=== PATIENT | male | born 1945 | race Caucasian/White ===

== ENCOUNTER → 2021-03-04 10:11 | Outpatient (BNVA) | payer MEDICARE, SELFPAY | PROVIDERS: Visit Provider Family Medicine | DX: I10 Essential (primary) hypertension (principal); R35.1 Nocturia; E78.1 Pure hyperglyceridemia | CPT/HCPCS: 80053; 80061; 82043; 84153; 85025 ==

== ENCOUNTER → 2021-09-02 10:35 | Outpatient (BNVA) | payer MEDICARE, SELFPAY | PROVIDERS: PCP Family Medicine; Visit Provider Family Medicine | DX: I10 Essential (primary) hypertension (principal); E78.1 Pure hyperglyceridemia; R35.1 Nocturia; G47.33 Obstructive sleep apnea (adult) (pediatric) | CPT/HCPCS: 80053 ==

== ENCOUNTER → 2022-03-05 10:12 | Outpatient (BNVA) | payer MEDICARE, SELFPAY | PROVIDERS: PCP Family Medicine; Visit Provider Family Medicine | DX: I10 Essential (primary) hypertension (principal); R35.1 Nocturia; G60.9 Hereditary and idiopathic neuropathy, unspecified | CPT/HCPCS: 80053; 80061; 82607; 84153; 84443; 85025 ==

== ENCOUNTER → 2022-08-27 10:16 | Outpatient (BNVA) | payer MEDICARE, SELFPAY | PROVIDERS: PCP Family Medicine; Visit Provider Family Medicine | DX: I10 Essential (primary) hypertension (principal); R53.83 Other fatigue; G47.33 Obstructive sleep apnea (adult) (pediatric) | CPT/HCPCS: 80053; 82043; 84403; 84443; 85025 ==

== ENCOUNTER 2023-03-19 08:52 | Outpatient (CLI) | payer MEDICARE, SELFPAY ==
--- NOTE | 2023-03-19 08:55 | XR_ITS ---
WS: [id number] XR shoulder RT min 2V* [id number] REASON FOR EXAM: chronic right shoulder pain FINDINGS: No fracture or focal bone lesion. Moderate narrowing of the acromioclavicular joint with moderate subchondral sclerosis and osteophytos is. Glenohumeral joint space not optimally demonstrated. Moderate narrowing of the joint space with moder ate subchondral sclerosis. Significant sclerosis and cystic change in the greater biceps tuberosity. No soft tissue abnormality. 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 Significant rotator cuff tendon arthropathy.
== END 2023-03-19 08:53 | disposition home or self-care (01) ==
LOC: RAD 08:54
PROVIDERS: PCP Family Medicine; Visit Provider Family Medicine
DX: M19.011 Primary osteoarthritis, right shoulder (principal); G89.29 Other chronic pain; R35.1 Nocturia; E78.5 Hyperlipidemia, unspecified
CPT/HCPCS: 73030; 80053; 80061; 84153

== ENCOUNTER 2024-02-10 10:33 | Outpatient (CLI) | payer MEDICARE, SELFPAY ==
--- NOTE | 2024-02-10 10:35 | XR_ITS ---
WS: [id number] Chest 2 views, 02/10/2024 Clinical Data: cough on and off Comparison: Two-view chest, 11/10/2016. Findings: No nodules, masses or effusions are seen. The heart is normal. The pulmonary vascularity is not increased. No pneumonia or pneumothorax is seen. The aortic arch is tortuous. There is an old po sterior lateral right ninth rib fracture. XR/XR chest 2V* [id number] Impression: Atherosclerosis.
== END 2024-02-10 10:34 | disposition home or self-care (01) ==
LOC: RAD 10:35
PROVIDERS: PCP Family Medicine; Visit Provider Family Medicine
DX: R05.3 Chronic cough (principal); Q25.46 Tortuous aortic arch
CPT/HCPCS: 71046

== ENCOUNTER → 2024-03-17 08:50 | Outpatient (BNVA) | payer MEDICARE, SELFPAY | PROVIDERS: PCP Family Medicine; Visit Provider Family Medicine | DX: I10 Essential (primary) hypertension (principal); E78.5 Hyperlipidemia, unspecified; R73.01 Impaired fasting glucose; E66.9 Obesity, unspecified; Z12.5 Encounter for screening for malignant neoplasm of prostate; G25.81 Restless legs syndrome; F51.04 Psychophysiologic insomnia | CPT/HCPCS: 80053; 80061; 83036; 84439; 84443; 85025; G0103 ==

== ENCOUNTER 2024-06-29 14:10 | Emergency (ER) | payer MEDICARE, SELFPAY ==
[2024-06-29] VITALS (8 sets, daily range): BP systolic 135–191; BP diastolic 67–89; PULSE 51–63; RESP 17–19; TEMP 36.8; O2SAT 95–100; BMI 30.7
--- NOTE | 2024-06-29 14:24 | ECG_ITS ---
[facility]24[facility]29 Pat Name: Roberto Carlos Maya Department: Room: Gender: Male Projection Printer: : 1945 Requested By: Kristin Gupta Order Number: [id number] Reading MD: JUDY JONES Measurements Intervals [place] Rate: 56 P: 46 IN: 171 QRS: 37 QRSD: 113 T: 31 QT: 413 QTc: 401 Interpretive Statements SINUS BRADYCARDIA PROBABLE INFERIOR MYOCARDIAL INFARCTION , PROBABLY OLD [35 ms Q WAVE IN II/aVF] No previous ECG available for comparison Electronically Signed On 07-01-2024 16:29:29 CDT by JUDY JONES [email or web address]
[2024-06-29 14:55] LABS: Basophils % 0.4 %; Eosinophils # 0.1 10^3/uL (0.0-0.8); Hematocrit 41.1 % (37-53); Lymphocytes % 20.2 %; Mean Corpuscular HGB Conc 34.8 g/dL (30-55); Mean Corpuscular Hemoglobin 30.9 pg (27-33); Mean Corpuscular Volume 88.8 fl (82-101); Mean Platelet Volume 9.7 fL (7.4-10.4); Monocytes # 0.4 10^3/uL (0.2-0.9); Monocytes % 8.4 %; Neutrophils # 3.38 10^3/uL (1.8-7.7); Neutrophils % 68.8 %; Nucleated Red Blood Cells % 0 %; Platelet Count 197 10^3/cmm (157-399); Red Blood Count 4.63 10^6/uL (3.85-5.65); Red Cell Distribution Width 12.9 % (12.1-15.1); White Blood Count 4.91 10^3/uL (3.29-11.43)
[2024-06-29 15:16] LABS: Alanine Aminotransferase 15 U/L (0-41); Albumin Level 4.3 g/dL (3.5-5.2); Alkaline Phosphatase 42 U/L (40-130); Aspartate Amino Transferase 18 U/L (0-40); Blood Urea Nitrogen 22 mg/dL (8-23); Calcium 9.8 mg/dL (8.5-10.5); Carbon Dioxide 24 mmol/L (22-29); Chloride 101 mmol/L (98-107); Creatinine Clr Calc Pharmacy 70.9059; Globulin 2.8 g/dL (1.3-4.6); Glucose 101 mg/dL (65-115); Osmolality Calculated 291 mOsm/kg (285-295); Sodium 139 mmol/L (136-145); Total Bilirubin 0.8 mg/dL (0.15-1.2); Total Protein 7.1 g/dL (6.6-8.7)
--- NOTE | 2024-06-29 15:58 | W.ED.GENADLT ---
Documented by User: Geoffrey Aalniz DO 07/03/24 06:24 HPI - General Adult General: Chief complaint: General Medical Stated complaint: high bp Time Seen by Provider: 06/29/24 15:36 History of Present Illness: 78-year-old male presents emergency room with elevated blood pressure. Began his symptoms this morning that he noticed he had elevated blood pressure to head headache some neck and left arm discomfort. He currently takes hydrochlorothiazide and losartan and metoprolol for his elevated blood pressure. He takes his medications usually for blood pressure at night took them last night. He still has a headache neck and arm discomfort. He denies any specific chest pain or shortness of breath no abdominal pain. No changes in medications he is not taking any lhdi-lhn-zvjfjbq medications recently. Associated symptoms: Reports headache(s); Deny chest pain, dyspnea, rash or palpitations Related Data Home Medications ?Medication ?Instructions ?Recorded ?Confirmed chondroitin sulfate A sodium 400 1,200 mg PO DAILY 06/29/24 06/30/24 mg capsule coenzyme Q10 100 mg capsule 200 mg PO DAILY 06/29/24 06/30/24 (CoQ-10) cyanocobalamin (vitamin B-12) 1,000 mcg PO DAILY 06/29/24 06/30/24 1,000 mcg tablet (Vitamin B-12) glucosamine HCl 1,500 mg tablet 1,500 mg PO DAILY 06/29/24 06/30/24 multivitamin with minerals-folic 1 tab PO DAILY 06/29/24 06/30/24 acid 400 mcg-lycopene 370 mcg tablet (One-A-Day Men's 50 Plus) quercetin 500 mg capsule 1,000 mg PO DAILY 06/29/24 06/30/24 vitamin D3 125 mcg (5,000 1 cap PO DAILY 06/29/24 06/30/24 unit)-vitamin K2 100 mcg capsule zinc acetate 50 mg (zinc) capsule 50 mg PO DAILY 06/29/24 06/30/24 Previous Rx's ?Medication ?Instructions ?Recorded trazodone 50 mg tablet 50 mg PO .qpm #90 tabs 02/13/24 fenofibrate nanocrystallized 145 See Rx Instructions .Route 05/09/24 mg tablet .COMPLEX #90 tabs hydrochlorothiazide 25 mg tablet 25 mg PO DAILY #90 tabs 05/09/24 losartan 100 mg tablet See Rx Instructions .Route 05/09/24 .COMPLEX #90 tabs metoprolol succinate 25 mg See Rx Instructions .Route 05/09/24 tablet,extended release 24 hr .COMPLEX #90 tabs indomethacin 50 mg capsule 50 mg PO TID PRN gout #30 caps 06/13/24 clonidine HCl 0.1 mg tablet 0.1 mg PO BID #60 tabs 06/30/24 Allergies Allergy/AdvReac Type Severity Reaction Status Date / Time amoxicillin Allergy Unknown ALGY-Rash Verified 03/17/24 08:03 Penicillins Allergy Unknown ALGY-Rash Verified 03/17/24 08:03 [id number]-[id number]-[id number] Reductase AdvReac Intermediate myalgias Verified 03/17/24 08:03 Inhibitor Review of Systems Const: Denies: fever(s) or chills Card: Denies: chest pain, palpitations, edema, swelling of feet/ankles, dyspnea on exertion or orthopnea Resp: Denies: dyspnea GI: Denies: abdominal pain : Denies: dysuria, urinary frequency or urinary urgency Musc: Denies: neck pain or back pain Skin/Breast: Denies: rash Neuro: Reports: headache(s) PFSH ED PFSH: Medical History Fasting hyperglycemia Restless leg syndrome Chronic insomnia Obesity (BMI 30.0-34.9) Dyslipidemia didn't tolerate statins in past; on fenofibrate Peyronie's disease hx of penile fx and surgical procedure on that KAITLIN (obstructive sleep apnea) cannot tolerate CPAP so not using Benign essential HTN Surgical History Hx of hand surgery trigger finger release; he thinks on R hand History of genitourinary surgical procedure surgery for penis fracture at [place] Family History Father Heart attack Mother Alzheimer disease CAD (coronary artery disease) Social History Smoking and tobacco/nicotine status: never used tobacco/nicotine Second hand smoke exposure: No Alcohol intake: current Alcohol intake frequency: 0-2 Drinks per Day Alcohol type: beer and wine Substance/Drug Use: never Household members: spouse Marital status: Number of children: 2 Highest education level completed: Bachelor's Degree Current occupational status: retired 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 [employer] Physical Exam Const: GENERAL APPEARANCE: cooperative ORIENTATION/CONSCIOUSNESS: Yes awake, Yes oriented to person, Yes oriented to place and Yes oriented to time HENMT: COMMON NORMALS: normocephalic, atraumatic and hearing grossly normal bilaterally HEAD & SCALP: normocephalic and atraumatic Resp: COMMON NORMALS: normal respiratory effort, No retractions, No use of accessory muscles and clear to auscultation bilaterally AUSCULTATION: clear to auscultation bilaterally Cardio: COMMON NORMALS: regular rate, regular rhythm and No murmurs present (Cardio) RATE: regular rate RHYTHM: regular rhythm GI: COMMON NORMALS: Soft to palpation and No hepatosplenomegaly present AUSCULTATION: Yes normoactive bowel sounds PALPATION: Yes Soft to palpation, No Tenderness to palpation present (GI), No Guarding due to palpation present (GI) and Yes No hepatosplenomegaly present Extremity: COMMON NORMALS: normal to inspection, capillary refill normal, no clubbing, cyanosis or edema, no calf tenderness and no pedal edema Neuro: SENSORIUM/ORIENTATION: Yes oriented to person, Yes oriented to place and Yes oriented to time Skin: COMMON NORMALS: no rashes or lesions noted GENERAL SKIN EXAM: no rashes or lesions noted Course Vital Signs: Vital signs: Vital Signs Temperature 98.2 F 06/29/24 14:19 Pulse Rate 52 L 06/29/24 20:22 Respiratory Rate 18 06/29/24 19:45 Blood Pressure 146/67 06/29/24 20:22 Pulse Oximetry 96 06/29/24 20:22 Oxygen Delivery Me thod Room Air 06/29/24 14:19 MDM - General Adult Medical Decision Making Care signed out to Dr. Ramos at change of shift. See final notes for diagnosis and disposition. Patient presents emerged from with complaint of some left shoulder and neck and arm pain. Never had any chest pain. His blood pressure was significantly elevated here but did come down nicely to 122/65 after given clonidine. His symptoms have completely resolved. His delta troponin was mildly bumped but this is likely just secondary to his elevated blood pressure, much less likely to be because of ACS. Patient has no chest pain at all at this time. He is asking be discharged home. Discussed the slight bump at the troponin with the patient and discussed with the patient that I would recommend him following up to get a stress test done. Also recommend the patient to keep a blood pressure diary and take this to his primary care physician. Lab Data 06/29/24 14:44 06/29/24 14:44 Radiology Impressions Chest X-Ray 06/29/24 16:53 IMPRESSION: No acute findings. Laboratory Results WBC 4.91 10^3/uL (3.29-11.43) 06/29/24 14:44 RBC 4.63 10^6/uL (3.85-5.65) 06/29/24 14:44 Hgb 14.30 g/dL (11.27-16.99) 06/29/24 14:44 Hct 41.1 % (37-53) 06/29/24 14:44 MCV 88.8 fl (82-101) 06/29/24 14:44 MCH 30.9 pg (27-33) 06/29/24 14:44 MCHC 34.8 g/dL (30-55) 06/29/24 14:44 RDW 12.9 % (12.1-15.1) 06/29/24 14:44 Plt Count 197 10^3/cmm (157-399) 06/29/24 14:44 MPV 9.7 fL (7.4-10.4) 06/29/24 14:44 Neut % (Auto) 68.8 % 06/29/24 14:44 Lymph % (Auto) 20.2 % 06/29/24 14:44 Clay % (Auto) 8.4 % 06/29/24 14:44 Eos % (Auto) 2.0 % 06/29/24 14:44 Baso % (Auto) 0.4 % 06/29/24 14:44 Neut # (Auto) 3.38 10^3/uL (1.8-7.7) 06/29/24 14:44 Lymph # (Auto) 1.0 10^3/uL (0.8-4.8) 06/29/24 14:44 Clay # (Auto) 0.4 10^3/uL (0.2-0.9) 06/29/24 14:44 Eos # (Auto) 0.1 10^3/uL (0.0-0.8) 06/29/24 14:44 Baso # (Auto) 0.0 10^3/uL (0.0-0.1) 06/29/24 14:44 Nucleated RBC % (auto) 0 % 06/29/24 14:44 Nucleated RBCs # 0.0 /100WBC 06/29/24 14:44 Sodium 139 mmol/L (136-145) 06/29/24 14:44 Potassium 4.0 mmol/L (3.5-5.1) 06/29/24 14:44 Chloride 101 mmol/L (98-107) 06/29/24 14:44 Carbon Dioxide 24 mmol/L (22-29) 06/29/24 14:44 Anion Gap 18.0 (5-19) 06/29/24 14:44 BUN 22 mg/dL (8-23) 06/29/24 14:44 Creatinine 1.1 mg/dL (0.7-1.2) 06/29/24 14:44 GFR Calculation Not Reportable 06/29/24 14:44 Glucose 101 mg/dL (65-115) 06/29/24 14:44 Calculated Osmolality 291 mOsm/kg (285-295) 06/29/24 14:44 Calcium 9.8 mg/dL (8.5-10.5) 06/29/24 14:44 Total Bilirubin 0.8 mg/dL (0.15-1.2) 06/29/24 14:44 AST 18 U/L (0-40) 06/29/24 14:44 ALT 15 U/L (0-41) 06/29/24 14:44 Alkaline Phosphatase 42 U/L (40-130) 06/29/24 14:44 Troponin T Baseline 58 ng/L (0-15) H 06/29/24 17:20 Troponin T 120 Minute 68.37 ng/L (0-15) H 06/29/24 19:00 Delta Troponin T 10.37 ABS# (0-10) H* 06/29/24 19:00 Total Protein 7.1 g/dL (6.6-8.7) 06/29/24 14:44 Albumin 4.3 g/dL (3.5-5.2) 06/29/24 14:44 Globulin 2.8 g/dL (1.3-4.6) 06/29/24 14:44 Urine Color Yellow (Yellow) 06/29/24 16:39 Urine Appearance Clear (CLEAR) 06/29/24 16:39 Urine pH 5.5 (5-7) 06/29/24 16:39 Ur Specific [place] 1.019 (1.005-1.030) 06/29/24 16:39 Urine Protein Negative (Negative) 06/29/24 16:39 Urine Glucose (UA) Negative (Normal) 06/29/24 16:39 Urine Ketones Negative (Negative) 06/29/24 16:39 Urine Blood Negative (Negative) 06/29/24 16:39 Urine Nitrate Negative (Negative) 06/29/24 16:39 Urine Bilirubin Negative (Negative) 06/29/24 16:39 Urine Urobilinogen 0.2 mg/dL (Negative) 06/29/24 16:39 Ur Leukocyte Esterase Negative (Negative) 06/29/24 16:39 Urine RBC 0-2 /hpf (0-2) 06/29/24 16:39 Urine WBC 0-5 /hpf (0-5) 06/29/24 16:39 Ur Squamous Epith Cells 0-5 /hpf (0-5) 06/29/24 16:39 Amorphous Sediment Not Reportable 06/29/24 16:39 Urine Bacteria None seen /hpf (NONE) 06/29/24 16:39 Hyaline Casts 0-4 /lpf H 06/29/24 16:39 Discharge Plan Discharge Patient Disposition: Home Clinical Impression: Benign essential HTN Condition: Stable Prescriptions: No Action trazodone 50 mg tablet 50 mg PO .qpm Qty: 90 3RF fenofibrate nanocrystallized 145 mg tablet See Rx Instructions .ROUTE .COMPLEX Qty: 90 1RF Dose Instruction: Take 1 tablet by mouth once daily Rx Instructions: Take 1 tablet by mouth once daily losartan 100 mg tablet See Rx Instructions .ROUTE .COMPLEX Qty: 90 1RF Dose Instruction: Take 1 tablet by mouth once daily Rx Instructions: Take 1 tablet by mouth once daily hydrochlorothiazide 25 mg tablet 25 mg PO DAILY Qty: 90 1RF metoprolol succinate 25 mg tablet extended release 24 hr See Rx Instructions .ROUTE .COMPLEX Qty: 90 1RF Dose Instruction: Take 1 tablet by mouth once daily Rx Instructions: Take 1 tablet by mouth once daily indomethacin 50 mg capsule 50 mg PO TID PRN (Reason: gout) Qty: 30 0RF Rx Instructions: administer with food or milk clonidine HCl 0.1 mg tablet 0.1 mg PO BID Qty: 60 0RF Rx Instructions: only take if top number BP is >160 or bottom number is >100, can take up to bid prn high readings zinc acetate 50 mg (zinc) Capsule 50 mg PO DAILY cyanocobalamin (vitamin B-12) [Vitamin B-12] 1,000 mcg Tablet 1,000 mcg PO DAILY Chondroitin Sulfate 400 mg Capsule 1,200 mg PO DAILY coenzyme Q10 [CoQ-10] 100 mg Capsule 200 mg PO DAILY glucosamine HCl 1,500 mg Tablet 1,500 mg PO DAILY Rx Instructions: administer with a meal quercetin 500 mg Capsule 1,000 mg PO DAILY One-A-Day Men's 50 Plus 400-370 mcg Tablet 1 tab PO DAILY vitamin D3-vitamin K2 125 mcg (5,000 unit)-100 mcg Capsule 1 cap PO DAILY Discharge Orders: Discharge ED (Routine); Ordered 06/29/24 Ordered By: Fransisco Ramos Referrals: Jazmin Mcintosh MD [Primary Care Provider, Family Practice] Discharge Diet: Low Salt Patient Instructions: Opioid Safety, Pain Management Activity Restrictions/Additional Instructions: Follow-up with PCP for referral for outpatient stress test. Keep a blood pressure diary. Print Language: [place] Islander Coding Level of Care Code ED Regional Safety Manager for Chg Fwd Documented by User: Fransisco Ramos MD 06/29/24 20:18 HPI - General Adult General: Chief complaint: General Medical Stated complaint: high bp Time Seen by Provider: 06/29/24 15:36 Related Data Home Medications ?Medication ?Instructions ?Recorded ?Confirmed chondroitin sulfate A sodium 400 1,200 mg PO DAILY 06/29/24 06/30/24 mg capsule coenzyme Q10 100 mg capsule 200 mg PO DAILY 06/29/24 06/30/24 (CoQ-10) cyanocobalamin (vitamin B-12) 1,000 mcg PO DAILY 06/29/24 06/30/24 1,000 mcg tablet (Vitamin B-12) glucosamine HCl 1,500 mg tablet 1,500 mg PO DAILY 06/29/24 06/30/24 multivitamin with minerals-folic 1 tab PO DAILY 06/29/24 06/30/24 acid 400 mcg-lycopene 370 mcg tablet (One-A-Day Men's 50 Plus) quercetin 500 mg capsule 1,000 mg PO DAILY 06/29/24 06/30/24 vitamin D3 125 mcg (5,000 1 cap PO DAILY 06/29/24 06/30/24 unit)-vitamin K2 100 mcg capsule zinc acetate 50 mg (zinc) capsule 50 mg PO DAILY 06/29/24 06/30/24 Previous Rx's ?Medication ?Instructions ?Recorded trazodone 50 mg tablet 50 mg PO .qpm #90 tabs 02/13/24 fenofibrate nanocrystallized 145 See Rx Instructions .Route 05/09/24 mg tablet .COMPLEX #90 tabs hydrochlorothiazide 25 mg tablet 25 mg PO DAILY #90 tabs 05/09/24 losartan 100 mg tablet See Rx Instructions .Route 05/09/24 .COMPLEX #90 tabs metoprolol succinate 25 mg See Rx Instructions .Route 05/09/24 tablet,extended release 24 hr .COMPLEX #90 tabs indomethacin 50 mg capsule 50 mg PO TID PRN gout #30 caps 06/13/24 clonidine HCl 0.1 mg tablet 0.1 mg PO BID #60 tabs 06/30/24 Allergies Allergy/AdvReac Type Severity Reaction Status Date / Time amoxicillin Allergy Unknown ALGY-Rash Verified 03/17/24 08:03 Penicillins Allergy Unknown ALGY-Rash Verified 03/17/24 08:03 [id number] Reductase AdvReac Intermediate myalgias Verified 03/17/24 08:03 Inhibitor PFSH ED PFSH: Medical History Fasting hyperglycemia Restless leg syndrome Chronic insomnia Obesity (BMI 30.0-34.9) Dyslipidemia didn't tolerate statins in past; on fenofibrate Peyronie's disease hx of penile fx and surgical procedure on that KAITLIN (obstructive sleep apnea) cannot tolerate CPAP so not using Benign essential HTN Surgical History Hx of hand surgery trigger finger release; he thinks on R hand History of genitourinary surgical procedure surgery for penis fracture at [place] Family History Father Heart attack Mother Alzheimer disease CAD (coronary artery disease) Social History Smoking and tobacco/nicotine status: never used tobacco/nicotine Second hand smoke exposure: No Alcohol intake: current Alcohol intake frequency: 0-2 Drinks per Day Alcohol type: beer and wine Substance/Drug Use: never Household members: spouse Marital status: Number of children: 2 Highest education level completed: Bachelor's Degree Current occupational status: retired 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 Never had any chest pain. His blood pressure was significantly elevated here but did come down nicely to 122/65 after given clonidine. His symptoms have completely resolved. His delta troponin was mildly bumped but this is likely just secondary to his elevated blood pressure, much less likely to be because of ACS. Patient has no chest pain at all at this time. He is asking be discharged home. Discussed the slight bump at the troponin with the patient and discussed with the patient that I would recommend him following up to get a stress test done. Also recommend the patient to keep a blood pressure diary and take this to his primary care physician. Lab Data 06/29/24 14:44 06/29/24 14:44 Radiology Impressions Chest X-Ray 06/29/24 16:53 IMPRESSION: No acute findings. Laboratory Results WBC 4.91 10^3/uL (3.29-11.43) 06/29/24 14:44 RBC 4.63 10^6/uL (3.85-5.65) 06/29/24 14:44 Hgb 14.30 g/dL (11.27-16.99) 06/29/24 14:44 Hct 41.1 % (37-53) 06/29/24 14:44 MCV 88.8 fl (82-101) 06/29/24 14:44 MCH 30.9 pg (27-33) 06/29/24 14:44 MCHC 34.8 g/dL (30-55) 06/29/24 14:44 RDW 12.9 % (12.1-15.1) 06/29/24 14:44 Plt Count 197 10^3/cmm (157-399) 06/29/24 14:44 MPV 9.7 fL (7.4-10.4) 06/29/24 14:44 Neut % (Auto) 68.8 % 06/29/24 14:44 Lymph % (Auto) 20.2 % 06/29/24 14:44 Clay % (Auto) 8.4 % 06/29/24 14:44 Eos % (Auto) 2.0 % 06/29/24 14:44 Baso % (Auto) 0.4 % 06/29/24 14:44 Neut # (Auto) 3.38 10^3/uL (1.8-7.7) 06/29/24 14:44 Lymph # (Auto) 1.0 10^3/uL (0.8-4.8) 06/29/24 14:44 Clay # (Auto) 0.4 10^3/uL (0.2-0.9) 06/29/24 14:44 Eos # (Auto) 0.1 10^3/uL (0.0-0.8) 06/29/24 14:44 Baso # (Auto) 0.0 10^3/uL (0.0-0.1) 06/29/24 14:44 Nucleated RBC % (auto) 0 % 06/29/24 14:44 Nucleated RBCs # 0.0 /100WBC 06/29/24 14:44 Sodium 139 mmol/L (136-145) 06/29/24 14:44 Potassium 4.0 mmol/L (3.5-5.1) 06/29/24 14:44 Chloride 101 mmol/L (98-107) 06/29/24 14:44 Carbon Dioxide 24 mmol/L (22-29) 06/29/24 14:44 Anion Gap 18.0 (5-19) 06/29/24 14:44 BUN 22 mg/dL (8-23) 06/29/24 14:44 Creatinine 1.1 mg/dL (0.7-1.2) 06/29/24 14:44 GFR Calculation Not Reportable 06/29/24 14:44 Glucose 101 mg/dL (65-115) 06/29/24 14:44 Calculated Osmolality 291 mOsm/kg (285-295) 06/29/24 14:44 Calcium 9.8 mg/dL (8.5-10.5) 06/29/24 14:44 Total Bilirubin 0.8 mg/dL (0.15-1.2) 06/29/24 14:44 AST 18 U/L (0-40) 06/29/24 14:44 ALT 15 U/L (0-41) 06/29/24 14:44 Alkaline Phosphatase 42 U/L (40-130) 06/29/24 14:44 Troponin T Baseline 58 ng/L (0-15) H 06/29/24 17:20 Troponin T 120 Minute 68.37 ng/L (0-15) H 06/29/24 19:00 Delta Troponin T 10.37 ABS# (0-10) H* 06/29/24 19:00 Total Protein 7.1 g/dL (6.6-8.7) 06/29/24 14:44 Albumin 4.3 g/dL (3.5-5.2) 06/29/24 14:44 Globulin 2.8 g/dL (1.3-4.6) 06/29/24 14:44 Urine Color Yellow (Yellow) 06/29/24 16:39 Urine Appearance Clear (CLEAR) 06/29/24 16:39 Urine pH 5.5 (5-7) 06/29/24 16:39 Ur Specific [place] 1.019 (1.005-1.030) 06/29/24 16:39 Urine Protein Negative (Negative) 06/29/24 16:39 Urine Glucose (UA) Negative (Normal) 06/29/24 16:39 Urine Ketones Negative (Negative) 06/29/24 16:39 Urine Blood Negative (Negative) 06/29/24 16:39 Urine Nitrate Negative (Negative) 06/29/24 16:39 Urine Bilirubin Negative (Negative) 06/29/24 16:39 Urine Urobilinogen 0.2 mg/dL (Negative) 06/29/24 16:39 Ur Leukocyte Esterase Negative (Negative) 06/29/24 16:39 Urine RBC 0-2 /hpf (0-2) 06/29/24 16:39 Urine WBC 0-5 /hpf (0-5) 06/29/24 16:39 Ur Squamous Epith Cells 0-5 /hpf (0-5) 06/29/24 16:39 Amorphous Sediment Not Reportable 06/29/24 16:39 Urine Bacteria None seen /hpf (NONE) 06/29/24 16:39 Hyaline Casts 0-4 /lpf H 06/29/24 16:39 All radiology interpretation(s) finalized by discharge Discharge Plan Discharge Patient Disposition: Home Clinical Impression: Benign essential HTN Condition: Stable Prescriptions: No Action trazodone 50 mg tablet 50 mg PO .qpm Qty: 90 3RF fenofibrate nanocrystallized 145 mg tablet See Rx Instructions .ROUTE .COMPLEX Qty: 90 1RF Dose Instruction: Take 1 tablet by mouth once daily Rx Instructions: Take 1 tablet by mouth once daily losartan 100 mg tablet See Rx Instructions .ROUTE .COMPLEX Qty: 90 1RF Dose Instruction: Take 1 tablet by mouth once daily Rx Instructions: Take 1 tablet by mouth once daily hydrochlorothiazide 25 mg tablet 25 mg PO DAILY Qty: 90 1RF metoprolol succinate 25 mg tablet extended release 24 hr See Rx Instructions .ROUTE .COMPLEX Qty: 90 1RF Dose Instruction: Take 1 tablet by mouth once daily Rx Instructions: Take 1 tablet by mouth once daily indomethacin 50 mg capsule 50 mg PO TID PRN (Reason: gout) Qty: 30 0RF Rx Instructions: administer with food or milk clonidine HCl 0.1 mg tablet 0.1 mg PO BID Qty: 60 0RF Rx Instructions: only take if top number BP is >160 or bottom number is >100, can take up to bid prn high readings zinc acetate 50 mg (zinc) Capsule 50 mg PO DAILY cyanocobalamin (vitamin B-12) [Vitamin B-12] 1,000 mcg Tablet 1,000 mcg PO DAILY Chondroitin Sulfate 400 mg Capsule 1,200 mg PO DAILY coenzyme Q10 [CoQ-10] 100 mg Capsule 200 mg PO DAILY glucosamine HCl 1,500 mg Tablet 1,500 mg PO DAILY Rx Instructions: administer with a meal quercetin 500 mg Capsule 1,000 mg PO DAILY One-A-Day Men's 50 Plus 400-370 mcg Tablet 1 tab PO DAILY vitamin D3-vitamin K2 125 mcg (5,000 unit)-100 mcg Capsule 1 cap PO DAILY Discharge Orders: Discharge ED (Routine); Ordered 06/29/24 Ordered By: Fransisco Ramos Referrals: Jazmin Mcintosh MD [Primary Care Provider, [facility]] Discharge Diet: Low Salt Patient Instructions: Opioid Safety, Pain Management Activity Restrictions/Additional Instructions: Follow-up with PCP for referral for outpatient stress test. Keep a blood pressure diary. Print Language: [place] Islander Coding Level of Care Code ED Regional Safety Manager for Roberto Loving
--- NOTE | 2024-06-29 16:35 | PC.NURSE ---
pt provided with urinal, informed for need of UA sample, pt states went in [facility] restroom, cannot [facility]
--- NOTE | 2024-06-29 16:53 | XRR_ITS ---
PROCEDURE INFORMATION: Exam: XR Chest Exam date and time: 06/29/2024 5:13 PM Age: 78 years old Clinical indication: Other: High BP; Additional info: Chest pain TECHNIQUE: Imaging protocol: Radiologic exam of the chest. Views: 1 view. COMPARISON: CR XR chest 2V* [id number] 02/10/2024 10:39 AM FINDINGS: Lungs: Unremarkable. No consolidation. Pleural spaces: Unremarkable. No pleural effusion. No pneumothorax. Heart/Mediastinum: Unremarkable. No cardiomegaly. Bones/joints: Unremarkable. XR/XR chest 1V portable [id number] IMPRESSION: No acute findings.
[2024-06-29 17:00] LABS: Bilirubin Urine Negative (Negative); Blood Urine Negative (Negative); Glucose Urine UA Negative (Normal); Ketones Urine Negative (Negative); Leukocyte Esterase Urine Negative (Negative); Nitrate Urine Negative (Negative); Protein Urine Negative (Negative); Specific Gravity, Urine 1.019 (1.005-1.030); Urine Appearance Clear (CLEAR); Urine Color Yellow (Yellow); Urobilinogen Urine 0.2 mg/dL (Negative); pH Urine 5.5 (5-7)
[2024-06-29 17:02] LABS: Add Urine Microscopic? YES; Bacteria Urine None Seen /hpf; Hyaline Casts Urine 0-4 /lpf; RBC Urine 0-2 /hpf (0-2); Squamous Epithelial Cell Urine 0-5 /hpf (0-5); WBC Urine 0-5 /hpf (0-5)
[2024-06-29 17:38] LABS: Add Urine Culture? No
[2024-06-29 17:45] LABS: Troponin(5th) Baseline 58 ng/L (0-15)
[2024-06-29] MEDS: cloNIDine 0.1 mg Tablet PO (18:04)
--- NOTE | 2024-06-29 18:53 | ECG_ITS ---
[facility] Test Date: 2024-06-29 Pat Name: Roberto Carlos Maya Department: Room: Gender: Male Soil Engineer: : 1945 Requested By: Geoffrey Miller Order Number: [id number] Reading MD: JUDY JONES Measurements Intervals [place] Rate: 51 P: 48 AK: 178 QRS: 41 QRSD: 112 T: 36 QT: 437 QTc: 406 Interpretive Statements SINUS BRADYCARDIA MODERATE INTRAVENTRICULAR CONDUCTION DELAY [110+ ms QRS DURATION] Compared to ECG 06/29/2024 14:24:57 Intraventricular conduction delay now present Myocardial infarct finding no longer present Electronically Signed On 07-01-2024 16:27:43 CDT by JUDY JONES [email or web address]
[2024-06-29 19:25] LABS: Troponin 5 2HR 68.37 ng/L (0-15)
[2024-06-29 19:29] LABS: Troponin 5 2HR Delta 10.37 ABS# (0-10)
== END 2024-06-29 20:23 | disposition home or self-care (01) ==
PROVIDERS: Family Medicine; Physician Assistant; Emergency Provider Emergency Medicine; PCP Family Medicine
DX: I10 Essential (primary) hypertension (principal); E78.5 Hyperlipidemia, unspecified
CPT/HCPCS: 36415; 71045; 80053; 81001; 84484; 85025; 93005; 99285; J9999

== ENCOUNTER 2024-06-30 10:56 | Inpatient (IN) | payer MEDICARE, SELFPAY ==
[2024-06-30] VITALS (11 sets, daily range): BP systolic 101–179; BP diastolic 55–84; PULSE 45–58; RESP 15–19; TEMP 36.4–36.8; O2SAT 95–98; BMI 30.7
--- NOTE | 2024-06-30 11:34 | PC.PHAR ---
patient just here yesterday, med list still accurate
--- NOTE | 2024-06-30 11:41 | W.ED.GENADLT ---
HPI - General Adult General: Chief complaint: General Medical Stated complaint: BP high, ache on left side and throat Time Seen by Provider: 06/30/24 11:24 History of Present Illness: 78-year-old man with a history of hypertension, hyperlipidemia and restless leg syndrome who presents emergency room with elevated blood pressure. This been going on for a few days now. He was seen in the emergency room yesterday and ruled out for acute coronary syndrome. He has been having some pressure/pain in his throat and down his left arm but no chest pain. He was given some clonidine while in the emergency room and blood pressure improved as did symptoms. However he developed symptoms again this morning and his blood pressure was back up. Related Data Home Medications ?Medication ?Instructions ?Recorded ?Confirmed chondroitin sulfate A sodium 400 1,200 mg PO DAILY 06/29/24 06/30/24 mg capsule coenzyme Q10 100 mg capsule 200 mg PO DAILY 06/29/24 06/30/24 (CoQ-10) cyanocobalamin (vitamin B-12) 1,000 mcg PO DAILY 06/29/24 06/30/24 1,000 mcg tablet (Vitamin B-12) glucosamine HCl 1,500 mg tablet 1,500 mg PO DAILY 06/29/24 06/30/24 multivitamin with minerals-folic 1 tab PO DAILY 06/29/24 06/30/24 acid 400 mcg-lycopene 370 mcg tablet (One-A-Day Men's 50 Plus) quercetin 500 mg capsule 1,000 mg PO DAILY 06/29/24 06/30/24 vitamin D3 125 mcg (5,000 1 cap PO DAILY 06/29/24 06/30/24 unit)-vitamin K2 100 mcg capsule zinc acetate 50 mg (zinc) capsule 50 mg PO DAILY 06/29/24 06/30/24 Previous Rx's ?Medication ?Instructions ?Recorded trazodone 50 mg tablet 50 mg PO .qpm #90 tabs 02/13/24 fenofibrate nanocrystallized 145 See Rx Instructions .Route 05/09/24 mg tablet .COMPLEX #90 tabs hydrochlorothiazide 25 mg tablet 25 mg PO DAILY #90 tabs 05/09/24 losartan 100 mg tablet See Rx Instructions .Route 05/09/24 .COMPLEX #90 tabs metoprolol succinate 25 mg See Rx Instructions .Route 05/09/24 tablet,extended release 24 hr .COMPLEX #90 tabs indomethacin 50 mg capsule 50 mg PO TID PRN gout #30 caps 06/13/24 clonidine HCl 0.1 mg tablet 0.1 mg PO BID #60 tabs 06/30/24 Allergies Allergy/AdvReac Type Severity Reaction Status Date / Time amoxicillin Allergy Unknown ALGY-Rash Verified 03/17/24 08:03 Penicillins Allergy Unknown ALGY-Rash Verified 03/17/24 08:03 [id number] Reductase AdvReac Intermediate myalgias Verified 03/17/24 08:03 Inhibitor Review of Systems Narrative: Constitutional symptoms: Negative except as documented in HPI. Skin symptoms: Negative except as documented in HPI. Eye symptoms: Negative except as documented in HPI. ENMT symptoms: Negative except as documented in HPI. Respiratory symptoms: Negative except as documented in HPI. Cardiovascular symptoms: Negative except as documented in HPI. Gastrointestinal symptoms: Negative except as documented in HPI. Genitourinary symptoms: Negative except as documented in HPI. Musculoskeletal symptoms: Negative except as documented in HPI. Neurologic symptoms: Negative except as documented in HPI. Psychiatric symptoms: Negative except as documented in HPI. Endocrine symptoms: Negative except as documented in HPI. PFSH ED PFSH: Medical History Fasting hyperglycemia Restless leg syndrome Chronic insomnia Obesity (BMI 30.0-34.9) Dyslipidemia didn't tolerate statins in past; on fenofibrate Peyronie's disease hx of penile fx and surgical procedure on that KAITLIN (obstructive sleep apnea) cannot tolerate CPAP so not using Benign essential HTN Surgical History Hx of hand surgery trigger finger release; he thinks on R hand History of genitourinary surgical procedure surgery for penis fracture at [facility] Family History Father Heart attack Mother Alzheimer disease CAD (coronary artery disease) Social History Smoking and tobacco/nicotine status: never used tobacco/nicotine Second hand smoke exposure: No Alcohol intake: current Alcohol intake frequency: 0-2 Drinks per Day Alcohol type: beer and wine Substance/Drug Use: never Household members: spouse Marital status: Number of children: 2 Highest education level completed: Bachelor's Degree Current occupational status: retired 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 Skin: Warm, dry. Head: Normocephalic, atraumatic. Neck: Supple, trachea midline. Eye: Extraocular movements are intact. Ears, nose, mouth and throat: mucosa moist. Cardiovascular: Regular, Normal peripheral perfusion. Respiratory: Lungs are clear to auscultation, respirations are non-labored, breath sounds are equal, Symmetrical chest wall expansion. Gastrointestinal: Soft, Nontender, Non distended Musculoskeletal: Normal ROM, no deformity. Neurological: Alert and oriented, No focal neurological deficit observed. Psychiatric: Cooperative, appropriate mood & affect. Course Vital Signs: Vital signs: Vital Signs Temperature 98.2 F 06/30/24 11:15 Pulse Rate 58 L 06/30/24 11:15 Respiratory Rate 16 06/30/24 11:15 Blood Pressure 178/81 06/30/24 11:15 Pulse Oximetry 97 06/30/24 11:15 Oxygen Delivery Me thod Room Air 06/30/24 11:15 MDM - General Adult Medical Decision Making Medical decision making: Differential diagnosis including but not limited to and based on the above HPI, review of systems and physical exam: Patient presents with hypertension: Essential hypertension. Stroke. acute coronary syndrome. kidney failure. congestive heart failure. anxiety. Orders placed to evaluate differential diagnosis based on the above differential, HPI and physical exam EKG: Time 1041. Rate 73. Normal sinus rhythm, No ST-T changes, no ectopy, normal ID & QRS intervals, This was reviewed and interpreted by myself the ER physician at 1046 Lab Review: Laboratory results were reviewed and interpreted by myself the emergency room physician. No leukocytosis. No anemia. No renal failure. Initial troponin is 140. Troponins yesterday were 58 and 68. There was not a significant delta at that time but given that he is continued have symptoms and is troponin is tripled the day treating as a non-STEMI and admitting. I reviewed the patient's medical record. Reexamination: Patient's blood pressure has improved without treatment. No increased work of breathing. Chest pain is improved some. I discussed findings and admission with the patient. Consultation: I spoke with Dr. Campbell who is on-call for cardiology. He recommends stat echo, therapeutic Lovenox, 300 mg Plavix which I have ordered. Consultation: I spoke with Dr. Alejo who is on-call for the hospitalist service who agrees to admission. Assessment and plan: Non-ST elevation myocardial infarction Chest pain Accelerated hypertension ?Blood pressures improved spontaneously ? Stat echo, Plavix and Lovenox in the emergency room. -I discussed the patient with the hospitalist on-call who is admitting the patient. - Discussed findings and plan with patient. Answered any questions. - All laboratory values were reviewed and interpreted personally by myself, the ER physician - All imaging was reviewed and interpreted personally by myself, the ER physician. - Evaluation and treatment of this problem were appropriate in the emergency setting Lab Data 06/30/24 11:47 06/30/24 11:47 Laboratory Results WBC 4.87 10^3/uL (3.29-11.43) 06/30/24 11:47 RBC 4.64 10^6/uL (3.85-5.65) 06/30/24 11:47 Hgb 14.40 g/dL (11.27-16.99) 06/30/24 11:47 Hct 41.1 % (37-53) 06/30/24 11:47 MCV 88.6 fl (82-101) 06/30/24 11:47 MCH 31.0 pg (27-33) 06/30/24 11:47 MCHC 35.0 g/dL (30-55) 06/30/24 11:47 RDW 12.9 % (12.1-15.1) 06/30/24 11:47 Plt Count 209 10^3/cmm (157-399) 06/30/24 11:47 MPV 9.9 fL (7.4-10.4) 06/30/24 11:47 Neut % (Auto) 68.9 % 06/30/24 11:47 Lymph % (Auto) 17.5 % 06/30/24 11:47 [place] % (Auto) 10.7 % 06/30/24 11:47 Eos % (Auto) 2.3 % 06/30/24 11:47 Baso % (Auto) 0.4 % 06/30/24 11:47 Neut # (Auto) 3.36 10^3/uL (1.8-7.7) 06/30/24 11:47 Lymph # (Auto) 0.9 10^3/uL (0.8-4.8) 06/30/24 11:47 [place] # (Auto) 0.5 10^3/uL (0.2-0.9) 06/30/24 11:47 Eos # (Auto) 0.1 10^3/uL (0.0-0.8) 06/30/24 11:47 Baso # (Auto) 0.0 10^3/uL (0.0-0.1) 06/30/24 11:47 Nucleated RBC % (auto) 0 % 06/30/24 11:47 Nucleated RBCs # 0.0 /100WBC 06/30/24 11:47 Sodium 137 mmol/L (136-145) 06/30/24 11:47 Potassium 4.1 mmol/L (3.5-5.1) 06/30/24 11:47 Chloride 102 mmol/L (98-107) 06/30/24 11:47 Carbon Dioxide 26 mmol/L (22-29) 06/30/24 11:47 Anion Gap 13.1 (5-19) 06/30/24 11:47 BUN 19 mg/dL (8-23) 06/30/24 11:47 Creatinine 0.9 mg/dL (0.7-1.2) 06/30/24 11:47 GFR Calculation Not Reportable 06/30/24 11:47 Glucose 111 mg/dL (65-115) 06/30/24 11:47 Calculated Osmolality 287 mOsm/kg (285-295) 06/30/24 11:47 Calcium 10.2 mg/dL (8.5-10.5) 06/30/24 11:47 Total Bilirubin 0.7 mg/dL (0.15-1.2) 06/30/24 11:47 AST 21 U/L (0-40) 06/30/24 11:47 ALT 16 U/L (0-41) 06/30/24 11:47 Alkaline Phosphatase 43 U/L (40-130) 06/30/24 11:47 Troponin T Baseline 139 ng/L (0-15) H* 06/30/24 11:47 Total Protein 7.3 g/dL (6.6-8.7) 06/30/24 11:47 Albumin 4.4 g/dL (3.5-5.2) 06/30/24 11:47 Globulin 2.9 g/dL (1.3-4.6) 06/30/24 11:47 No radiology studies performed this visit Discharge Plan Discharge Patient Disposition: Admitted As Inpatient Clinical Impression: Non-ST elevated myocardial infarction (non-STEMI), Chest pain, Accelerated hypertension Condition: Stable Coding Level of Care Code ED [employer] Manager for Roberto Loving
[2024-06-30 12:08] LABS: Basophils % 0.4 %; Eosinophils # 0.1 10^3/uL (0.0-0.8); Eosinophils % 2.3 %; Hematocrit 41.1 % (37-53); Lymphocytes # 0.9 10^3/uL (0.8-4.8); Lymphocytes % 17.5 %; Mean Corpuscular Volume 88.6 fl (82-101); Mean Platelet Volume 9.9 fL (7.4-10.4); Monocytes # 0.5 10^3/uL (0.2-0.9); Monocytes % 10.7 %; Neutrophils # 3.36 10^3/uL (1.8-7.7); Neutrophils % 68.9 %; Nucleated Red Blood Cells % 0 %; Platelet Count 209 10^3/cmm (157-399); Red Blood Count 4.64 10^6/uL (3.85-5.65); Red Cell Distribution Width 12.9 % (12.1-15.1); White Blood Count 4.87 10^3/uL (3.29-11.43)
[2024-06-30 12:29] LABS: Alanine Aminotransferase 16 U/L (0-41); Albumin Level 4.4 g/dL (3.5-5.2); Alkaline Phosphatase 43 U/L (40-130); Anion Gap 13.1 (5-19); Aspartate Amino Transferase 21 U/L (0-40); Blood Urea Nitrogen 19 mg/dL (8-23); Calcium 10.2 mg/dL (8.5-10.5); Carbon Dioxide 26 mmol/L (22-29); Chloride 102 mmol/L (98-107); Creatinine Clr Calc Pharmacy 86.6627; Globulin 2.9 g/dL (1.3-4.6); Glucose 111 mg/dL (65-115); Osmolality Calculated 287 mOsm/kg (285-295); Potassium 4.1 mmol/L (3.5-5.1); Sodium 137 mmol/L (136-145); Total Bilirubin 0.7 mg/dL (0.15-1.2); Total Protein 7.3 g/dL (6.6-8.7)
[2024-06-30 12:52] LABS: Troponin(5th) Baseline 139 ng/L (0-15)
--- NOTE | 2024-06-30 12:59 | USCV_ITS ---
Roberto Carlos Maya Age: 78 Gender: M : 1945 Exam Date: 06/30/2024 14:30 Ordering Phys: Arlette North MD Technologist: Exam Location: [facility] [place] Indication: cp sob BP: 168 / 80 HR: 56 Rhythm: Sinus Technical Quality: Adequate MEASUREMENTS (Male / Female) Normal Values 2D ECHO LV Diastolic Diameter PLAX 4.8 cm 4.2 - 5.9 / 3.9 - 5.3 cm IVS Diastolic Thickness 1.5 cm 0.6 - 1.0 / 0.6 - 0.9 cm IVS Systolic Thickness 2.0 cm LVPW Diastolic Thickness 1.3 cm 0.6 - 1.0 / 0.6 - 0.9 cm LVPW Systolic Thickness 1.9 cm LVOT Diameter 2.0 cm LV Ejection Fraction 2D Teich 69.0 % LV Ejection Fraction MOD 4C 74.6 % LV Ejection Fraction MOD 2C 71.2 % LV Ejection Fraction 2C AL 70.9 % LA Diameter 4.9 cm Aorta at Sinotubular Diameter 3.0 cm M-MODE LA Ao Ratio MM 1.5 AV Cusp Separation MM 2.3 cm DOPPLER AV Peak Velocity 157.0 cm/s LVOT Peak Velocity 106.0 cm/s AV Area Cont Eq vti 2.3 cm squared AV Area Cont Eq pk 2.1 cm squared MV Area PHT 2.6 cm squared Mitral E to A Ratio 1.1 TV Peak Velocity 212.0 cm/s TR Peak Velocity 293.0 cm/s TR Peak Gradient 34.3 mmHg TV Peak E Velocity 113.0 cm/s PV Peak Velocity 111.0 cm/s FINDINGS Left Ventricle Normal left ventricular size and systolic function, EF 69%.. Mild left ventricular hypertrophy. Mild to moderate concentric left ventricular hypertrophyGrade I/IV diastolic dysfunction (abnormal relaxation filling pattern), normal to mildly elevated filling pressures. Right Ventricle The right ventricle is normal in size and function. Right Atrium The right atrium is normal in size. Left Atrium Mildly increased left atrial size. Mitral Valve Trace mitral valve regurgitation. Aortic Valve No gross abnormalities no Tricuspid Valve No gross abnormalities noted Pulmonic Valve Trace pulmonary valve regurgitation. Pericardium No pericardial effusion. Aorta Normal ascending aorta dimension. IVC Inferior vena cava not visualized. CONCLUSIONS Normal left ventricular size and systolic function, EF 69%.. Mild left ventricular hypertrophy. Mild to moderate concentric left ventricular hypertrophyGrade I/IV diastolic dysfunction (abnormal relaxation filling pattern), normal to mildly elevated filling pressures. Mildly increased left atrial size. Trace mitral valve regurgitation. Trace pulmonary valve regurgitation. There is no pericardial effusion. There are no intracardiac masses. No similar previous studies are available for comparison Dr Thanh Campbell MD [facility] (Electronically Signed) Final Date: 30 Jun 2024 18:59 S
--- NOTE | 2024-06-30 13:10 | P.CONIM_ITS ---
Providers/Reason For Consult 2 Consulting Physician/Specialty*: BRIGETTE Campbell MD/cardiology Reason for Consult*: Patient with chest pain, elevated troponin T Primary Care Provider: Jazmin Mcintosh MD History of Present Illness History of Present Illness Roberto Carlos Maya is a 78 year old male is being admitted to the hospital through the emergency room where he presented with complaints of recurrent episodes of chest pain. He was found to have elevated troponin T. Cardiology consult is requested for further cardiac evaluation and recommendations. This patient apparently has been in his baseline state of health up until last Wednesday when he had his first episode of chest pain after his dinner, while watching TV at home. The pain was mainly in the nape of the neck and the back of his head. It was a mild to moderate intensity. Might have lasted for an hour or so and then gradually subsided. Yesterday afternoon he again started having pain, this time , the pain was at the upper part of the neck and in the throat area. It was moderately severe in intensity. The pain started to radiate to the left shoulder and also to the back of the neck. His blood pressure was found to be elevated in the 190s. For this reason, he came to the emergency room yesterday. He was found to have elevated troponin T in the 58s. The 2-hour troponin T was around 68. The EKG was unremarkable. The blood pressure was brought down with the clonidine. Since the patient remained stable with no recurrence of pain, he was sent home. Around midnight, the patient woke up with neck pain again. This time the pain was more intense, radiating to the throat area and then to the back. After couple of hours, the pain gradually subsided. This morning when he woke up, he had slight pain in the neck area. After the breakfast, the pain started getting worse again. For this reason, he decided to come back to the hospital. Initial troponin T was in the 139. The EKG still did not reveal any significant changes. He is being admitted to the hospital for further evaluation and management. This patient has no previous history for coronary disease, myocardial infarction or congestive heart failure. He is not have high blood pressure over the last 40 years or so. He also has a history of dyslipidemia. He looks statins for some time. But apparently he had some side effects causing him generalized weakness/fatigue and for that reason, it was discontinued. According the patient, the most recent lipid profile showed slightly elevated parameters. Currently he is not on any lipid-lowering agents. Patient also has a history of obstructive sleep apnea. He was on CPAP machine for a while. But he discontinued the CPAP machine on his own because of the inconvenience and also because he was told that the sleep apnea is organic in nature?. He has no history for diabetes. No history for CVA or peripheral artery disease. No history for any kidney disease, liver disease or bleeding disorders. He denies any smoking abuse. He drinks daily, considers as happy hour drinking. No other substance abuse. His father had a myocardial infarction at the age of 57. He underwent open heart surgery at the age of 65 and lived up to be in his 90s. His mother had a myocardial infarction and underwent open heart surgery at the age of 63. No other relevant family history. Review of Systems 2 Narrative: CONSTITUTIONAL: No fever or chills. EYES: No blurring of vision or other visual disturbances lately. ENT: No hoarseness of voice, auditory disturbances or sore throat. CARDIOVASCULAR: As mentioned above. RESPIRATORY: No significant cough. GASTROINTESTINAL: No hematemesis or melena. GENITOURINARY: No dysuria or hematuria. INTEGUMENTARY: No skin rashes or history of skin cancer. NEURO: No transient ischemic attacks or amaurosis. PSYCHIATRIC: No history of psychosis or major depression. HEMATOLOGIC: No bleeding disorders or significant anemia. ENDOCRINE: No history of polyuria or polydipsia. MUSCULOSKELETAL: No recent joint pain or swelling. ALLERGY/IMMUNOLOGY: As mentioned above. Medications/Allergies Home Medications ?Medication ?Instructions ?Recorded ?Confirmed ?Last Taken ?Type trazodone 50 mg tablet 50 mg PO .qpm #90 tabs 02/1206/30/24 06/29/24 Rx fenofibrate nanocrystallized 145 See Rx Instructions . Route 05/09/24 06/30/24 06/30/24 Rx mg tablet .COMPLEX #90 tabs hydrochlorothiazide 25 mg tablet 25 mg PO DAILY #90 ta bs 05/09/24 06/30/24 06/30/24 Rx losartan 100 mg tablet See Rx Instructions .Route 0 05/09/24 06/30/24 06/30/24 Rx .COMPLEX #90 tabs metoprolol succinate 25 mg See Rx Instructions .Route 05/09/24 06/30/24 06/30/24 Rx tablet,extended release 24 hr .COMPLEX #90 tabs indomethacin 50 mg capsule 50 mg PO TID PRN gout #30 c aps 06/13/24 06/30/24 06/30/24 Rx chondroitin sulfate A sodium 400 1,200 mg PO DAILY 10/1606/30/24 06/30/24 History mg capsule coenzyme Q10 100 mg capsule 200 mg PO DAILY 06/29/24 0 06/30/24 06/30/24 History (CoQ-10) cyanocobalamin (vitamin B-12) 1,000 mcg PO DAILY 06/2906/30/24 06/30/24 History 1,000 mcg tablet (Vitamin B-12) glucosamine HCl 1,500 mg tablet 1,500 mg PO DAILY 10/1606/30/24 06/30/24 History multivitamin with minerals-folic 1 tab PO DAILY 06/30/24 06/30/24 History acid 400 mcg-lycopene 370 mcg tablet (One-A-Day Men's 50 Plus) quercetin 500 mg capsule 1,000 mg PO DAILY 06/29/24 0 06/30/24 06/30/24 History vitamin D3 125 mcg (5,000 1 cap PO DAILY 06/29/2411/1606/30/24 History unit)-vitamin K2 100 mcg capsule zinc acetate 50 mg (zinc) capsule 50 mg PO DAILY 06/2906/30/24 06/30/24 History clonidine HCl 0.1 mg tablet 0.1 mg PO BID #60 tabs 11/1606/30/24 06/30/24 Rx Allergies Allergy/AdvReac Type Severity Reaction Status Date / Time amoxicillin Allergy Unknown ALGY-Rash Verified 03/17/24 08:03 Penicillins Allergy Unknown ALGY-Rash Verified 03/17/24 08:03 Ztkqorq-YML-HeL Reductase AdvReac Intermediate myalgias Verified 03/17/24 08:03 Inhibitor PFSH Acute 2 PFSH: Medical History Fasting hyperglycemia Restless leg syndrome Chronic insomnia Obesity (BMI 30.0-34.9) Dyslipidemia didn't tolerate statins in past; on fenofibrate Peyronie's disease hx of penile fx and surgical procedure on that KAITLIN (obstructive sleep apnea) cannot tolerate CPAP so not using Benign essential HTN Surgical History Hx of hand surgery trigger finger release; he thinks on R hand History of genitourinary surgical procedure surgery for penis fracture at [place] Family History Father Heart attack Mother Alzheimer disease CAD (coronary artery disease) Social History Smoking and tobacco/nicotine status: never used tobacco/nicotine Second hand smoke exposure: No Alcohol intake: current Alcohol intake frequency: 0-2 Drinks per Day Alcohol type: beer and wine Substance/Drug Use: never Household members: spouse Marital status: Number of children: 2 Highest education level completed: Bachelor's Degree Current occupational status: retired 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 Vitals/I&O/Wt Last Vital Signs Temp 98.2 F 06/30/24 11:15 Pulse 58 L 06/30/24 11:15 Resp 16 06/30/24 11:15 BP 178/81 06/30/24 11:15 Pulse Ox 97 06/30/24 11:15 O2 Del Method Room Air 06/30/24 11:15 06/29/24 06/30/24 06/30/24 22:59 06:59 14:59 Intake Total 0 / 0 Balance 0 / 0 Weight last 48 hrs Weight 227 lb Physical Exam 2 Narrative: GENERAL: The patient is alert and oriented times three. Not in any acute distress. HEENT: No significant pallor, icterus or lymphadenopathy.Oral cavity: There are no mucous membrane lesions. NECK: Trachea appears to be central. No masses noted. No JVD or thyromegaly appreciated. RESPIRATORY: Chest is symmetrical. No intercostals muscle retraction or any accessory muscle activation. There is no chest wall tenderness. Breath sounds are heard bilaterally. No rales or rhonchi heard. No evidence of any consolidation. BREASTS: Deferred. HEART: The heart sounds are normal. No S3 or S4. Short systolic murmur in the left sternal border. No pericardial rub ABDOMEN: No vessel pulsations or distention. No tenderness. No organomegaly appreciated. Bowel sounds are normally heard. : Deferred. RECTAL: Deferred. LYMPHATIC: No lymphadenopathy noted in the neck. EXTREMITIES: No edema or cyanosis. No clubbing. MUSCULOSKELETAL: No acute joint deformities or swelling SKIN: There are no significant rashes or ecchymosis NEUROPSYCHIATRIC: The patient is alert and oriented x3. Appears to be in a good mood. No tremors or rigidity noted. Data 07/01/24 03:07 07/01/24 03:07 Other Labs: Laboratory Last Values WBC 4.87 10^3/uL (3.29-11.43) 06/30/24 11:47 RBC 4.64 10^6/uL (3.85-5.65) 06/30/24 11:47 Hgb 14.40 g/dL (11.27-16.99) 06/30/24 11:47 Hct 41.1 % (37-53) 06/30/24 11:47 MCV 88.6 fl (82-101) 06/30/24 11:47 MCH 31.0 pg (27-33) 06/30/24 11:47 MCHC 35.0 g/dL (30-55) 06/30/24 11:47 RDW 12.9 % (12.1-15.1) 06/30/24 11:47 Plt Count 209 10^3/cmm (157-399) 06/30/24 11:47 MPV 9.9 fL (7.4-10.4) 06/30/24 11:47 Neut % (Auto) 68.9 % 06/30/24 11:47 Lymph % (Auto) 17.5 % 06/30/24 11:47 [place] % (Auto) 10.7 % 06/30/24 11:47 Eos % (Auto) 2.3 % 06/30/24 11:47 Baso % (Auto) 0.4 % 06/30/24 11:47 Neut # (Auto) 3.36 10^3/uL (1.8-7.7) 06/30/24 11:47 Lymph # (Auto) 0.9 10^3/uL (0.8-4.8) 06/30/24 11:47 [place] # (Auto) 0.5 10^3/uL (0.2-0.9) 06/30/24 11:47 Eos # (Auto) 0.1 10^3/uL (0.0-0.8) 06/30/24 11:47 Baso # (Auto) 0.0 10^3/uL (0.0-0.1) 06/30/24 11:47 Nucleated RBC % (auto) 0 % 06/30/24 11:47 Nucleated RBCs # 0.0 /100WBC 06/30/24 11:47 Sodium 137 mmol/L (136-145) 06/30/24 11:47 Potassium 4.1 mmol/L (3.5-5.1) 06/30/24 11:47 Chloride 102 mmol/L (98-107) 06/30/24 11:47 Carbon Dioxide 26 mmol/L (22-29) 06/30/24 11:47 Anion Gap 13.1 (5-19) 06/30/24 11:47 BUN 19 mg/dL (8-23) 06/30/24 11:47 Creatinine 0.9 mg/dL (0.7-1.2) 06/30/24 11:47 GFR Calculation Not Reportable 06/30/24 11:47 Glucose 111 mg/dL (65-115) 06/30/24 11:47 Calculated Osmolality 287 mOsm/kg (285-295) 06/30/24 11:47 Calcium 10.2 mg/dL (8.5-10.5) 06/30/24 11:47 Total Bilirubin 0.7 mg/dL (0.15-1.2) 06/30/24 11:47 AST 21 U/L (0-40) 06/30/24 11:47 ALT 16 U/L (0-41) 06/30/24 11:47 Alkaline Phosphatase 43 U/L (40-130) 06/30/24 11:47 Troponin T Baseline 139 ng/L (0-15) H* 06/30/24 11:47 Total Protein 7.3 g/dL (6.6-8.7) 06/30/24 11:47 Albumin 4.4 g/dL (3.5-5.2) 06/30/24 11:47 Globulin 2.9 g/dL (1.3-4.6) 06/30/24 11:47 EKG 1: My Interpretation: The EKG from 06/29/2024 revealed a normal sinus rhythm with normal ST Ts A&P Assessment and plan (1) Non-ST elevated myocardial infarction (non-STEMI): Patient's elevated troponin T, may suggest non-ST elevation myocardial infarction. Hemodynamically seems to be stable. (2) Chest pain: The patient's chest pain is lasted for several hours. The fact that the EKG did not show any significant change and also the patient had accelerated hypertension, possibility of an aortic dissection cannot be excluded. It would be appropriate to do a CTA of the chest to rule out any aortic dissection. (3) Benign essential HTN: The blood pressure is still elevated. Need to optimize the antihypertensive medications. I may start him on amlodipine 5 mg now and daily. (4) Dyslipidemia: Patient also will be started on lipid-lowering agent (5) KAITLIN (obstructive sleep apnea): May need to monitor the oxygen level closely Plan CT of the chest to rule out aortic dissection Echocardiogram developed LV function and rule out any other abnormality. Serial cardiac enzymes and EKGs If there is no evidence of dissection, patient may be started on Lovenox, aspirin, Plavix and other symptomatic measures. Patient may require a cardiac catheterization to further evaluate the coronary status and decide on further management Based on the clinical progress and the results of the above, further recommendations will be made Thank you for the opportunity to evaluate this patient and make these recommendations PDMP PDMP Reviewed: Not Reviewed Coding Level of Care Code 77306 Diagnoses Non-ST elevated myocardial infarction (non-STEMI) I21.4 Chest pain, unspecified type R07.9 Chest pain type: unspecified Benign essential HTN I10 Dyslipidemia E78.5 KAITLIN (obstructive sleep apnea) G47.33
[2024-06-30] MEDS: clopidogrel 300 mg Tablet PO (13:21)
[2024-06-30] MEDS: aspirin 81 mg Chew Tablet 324 MG PO (13:21)
[2024-06-30] MEDS: enoxaparin 100 mg/mL Syringe SUBCUT (13:23)
--- NOTE | 2024-06-30 14:22 | ECG_ITS ---
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
--- NOTE | 2024-06-30 14:31 | PM.HP ---
Providers/Chief Complaint Primary Care Provider: Jazmin Mcintosh MD Chief Complaint: BP high, ache on left side and throat History of Present Illness Mr Roberto Carlos Maya is a 78 year old male 78-year-old man with a history of hypertension, hyperlipidemia and restless leg syndrome who presents for further evaluation of elevated blood pressure ongoing for the past few days. He was seen in the ER yesterday and discharged home after he had improvement in his blood pressure. Today, elevated blood pressure was associated with some pressure in his throat and pain in his left arm. He however denies chest pain. He denies fever, chills, nausea, vomiting, dizziness, loss of consciousness, abdominal pain or any other symptoms. In the ER, patient noted to have elevated troponin. EKG negative for STEMI. Patient's blood pressure was initially severely elevated but improved. Cardiology was consulted who recommended stat echo and therapeutic Lovenox. Review of Systems General: Reports: 10 or more systems reviewed and unremarkable except in HPI and below Const: Denies: fever(s) or chills Eyes: Denies: change in vision or blurry vision Card: Denies: lightheadedness or dyspnea on exertion Resp: Denies: dyspnea, productive cough or non-productive cough GI: Denies: abdominal pain, nausea or vomiting : Denies: difficulty urinating Neuro: Denies: headache(s) or weakness in extremities Medications/Allergies Home Medications ?Medication ?Instructions ?Recorded ?Confirmed ?Last Taken ?Type trazodone 50 mg tablet 50 mg PO .qpm #90 tabs 02/13/24 06/30/24 06/29/24 Rx fenofibrate nanocrystallized 145 See Rx Instructions .Route 05/09/24 06/30/24 06/30/24 Rx mg tablet .COMPLEX #90 tabs hydrochlorothiazide 25 mg tablet 25 mg PO DAILY #90 tabs 05/09/24 06/30/24 06/30/24 Rx losartan 100 mg tablet See Rx Instructions .Route 05/09/24 06/30/24 06/30/24 Rx .COMPLEX #90 tabs metoprolol succinate 25 mg See Rx Instructions .Route 05/09/24 06/30/24 06/30/24 Rx tablet,extended release 24 hr .COMPLEX #90 tabs indomethacin 50 mg capsule 50 mg PO TID PRN gout #30 caps 06/13/24 06/30/24 06/30/24 Rx chondroitin sulfate A sodium 400 1,200 mg PO DAILY 06/29/24 06/30/24 06/30/24 History mg capsule coenzyme Q10 100 mg capsule 200 mg PO DAILY 06/29/24 06/30/24 06/30/24 History (CoQ-10) cyanocobalamin (vitamin B-12) 1,000 mcg PO DAILY 06/29/24 06/30/24 06/30/24 History 1,000 mcg tablet (Vitamin B-12) glucosamine HCl 1,500 mg tablet 1,500 mg PO DAILY 06/29/24 06/30/24 06/30/24 History multivitamin with minerals-folic 1 tab PO DAILY 06/29/24 06/30/24 06/30/24 History acid 400 mcg-lycopene 370 mcg tablet (One-A-Day Men's 50 Plus) quercetin 500 mg capsule 1,000 mg PO DAILY 06/29/24 06/30/24 06/30/24 History vitamin D3 125 mcg (5,000 1 cap PO DAILY 06/29/24 06/30/24 06/30/24 History unit)-vitamin K2 100 mcg capsule zinc acetate 50 mg (zinc) capsule 50 mg PO DAILY 06/29/24 06/30/24 06/30/24 History clonidine HCl 0.1 mg tablet 0.1 mg PO BID #60 tabs 06/30/24 06/30/24 06/30/24 Rx Allergies Allergy/AdvReac Type Severity Reaction Status Date / Time amoxicillin Allergy Unknown ALGY-Rash Verified 03/17/24 08:03 Penicillins Allergy Unknown ALGY-Rash Verified 03/17/24 08:03 [id number]-POE-TuS Reductase AdvReac Intermediate myalgias Verified 03/17/24 08:03 Inhibitor PFSH Acute PFSH: Medical History Fasting hyperglycemia Restless leg syndrome Chronic insomnia Obesity (BMI 30.0-34.9) Dyslipidemia didn't tolerate statins in past; on fenofibrate Peyronie's disease hx of penile fx and surgical procedure on that KAITLIN (obstructive sleep apnea) cannot tolerate CPAP so not using Benign essential HTN Surgical History Hx of hand surgery trigger finger release; he thinks on R hand History of genitourinary surgical procedure surgery for penis fracture at [place] Family History Father Heart attack Mother Alzheimer disease CAD (coronary artery disease) Social History Smoking and tobacco/nicotine status: never used tobacco/nicotine Second hand smoke exposure: No Alcohol intake: current Alcohol intake frequency: 0-2 Drinks per Day Alcohol type: beer and wine Substance/Drug Use: never Household members: spouse Marital status: Number of children: 2 Highest education level completed: Bachelor's Degree Current occupational status: retired 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 Skin: Warm, dry. Head: Normocephalic, atraumatic. Neck: Supple, trachea midline. Eye: Extraocular movements are intact. Ears, nose, mouth and throat: mucosa moist. Cardiovascular: S1, S2, regular rate and rhythm Respiratory: Lungs are clear to auscultation, no wheezes or crackles Gastrointestinal: Soft, Nontender, Non distended, bowel sounds positive Neurological: Alert and oriented, No focal neurological deficit observed. Data 06/30/24 11:47 06/30/24 11:47 A&P Assessment and plan (1) Non-ST elevated myocardial infarction (non-STEMI): (2) Accelerated hypertension: (3) Chest pain: Plan #Throat Pressure and pain in his left arm # Elevated troponin # Suspected NSTEMI - Patient presented with throat pressure and pain in his left arm in the setting of severe hypertension - Troponin is elevated - EKG negative for STEMI - Cardiology consulted recommends therapeutic Lovenox, echo, CTA chest to evaluate for dissection - Telemetry monitoring # Severe/Accelerated hypertension - Patient's blood pressure is poorly controlled -He has some improvement in the ER - Resume chronic medications and uptitrate as appropriate PDMP PDMP Reviewed: Not Reviewed Attestations Medical Necessity Statement*: Patient to be admitted to observation , care not expected to be greater than 2 midnights. Coding Level of Care Code Acute Code for Chg Fwd Diagnoses Non-ST elevated myocardial infarction (non-STEMI) I21.4 Accelerated hypertension I10 Chest pain R07.9
[2024-06-30 14:51] LABS: Troponin 5 2HR 162.9 ng/L (0-15); Troponin 5 2HR Delta 23.9 ABS# (0-10)
--- NOTE | 2024-06-30 17:01 | CTR_ITS ---
PROCEDURE INFORMATION: Exam: CTA Chest Without And With Contrast Exam date and time: 06/30/2024 6:15 PM Age: 78 years old Clinical indication: Abnormal findings; Abnormal diagnostic tests; Other: Elevated troponins; Other: Hypertensive; Patient C/O hypertension found to be in nstemi with base trop of 139 with positive 23.9 delta. Denies any chest pain and no prior cardiac history. ; Additional info: Evaluate for aortic dissection, pe TECHNIQUE: Imaging protocol: Computed tomographic angiography of the chest without and with contrast. Exam focused on the arteries. 3D rendering (Not supervised by radiologist): MIP and/or 3D reconstructed images were created by the technologist. Radiation optimization: All CT scans at this facility use at least one of these dose optimization techniques: automated exposure control; mA and/or kV adjustment per patient size (includes targeted exams where dose is matched to clinical indication); or iterative reconstruction. Contrast material: OMNI 350; Contrast volume: 100 ml; Contrast route: INTRAVENOUS (IV); COMPARISON: CR (CHEST, ) 06/29/2024 5:13 PM RADIATION DOSE METRICS: Total DLP (mGy-cm): 924.38 FINDINGS: Pulmonary arteries: There is no evidence of filling defects within the pulmonary arterial circulation to suggest pulmonary embolism. Aorta: There is no thoracic aortic aneurysm or dissection. Lungs: No acute pulmonary infiltrate is identified. There is some minimal peripheral scarring at the lung bases. Pleural spaces: Unremarkable. No pneumothorax. No pleural effusion. Heart: Unremarkable. No cardiomegaly. No pericardial effusion. Coronary arteries: There is mild atherosclerotic calcification of the coronary arteries. Lymph nodes: There is no evidence of lymphadenopathy. Bones/joints: Unremarkable. No acute fracture. Soft tissues: Unremarkable. CT/CT angio chest 40764 IMPRESSION: No acute findings. No evidence for pulmonary embolism.
--- NOTE | 2024-06-30 17:50 | ECG_ITS ---
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1945 Requested By: Arlette Miller Order Number: [id number] John MD: JUDY JONES Measurements Intervals [place] Rate: 50 P: 18 [place]: 178 QRS: -13 QRSD: 109 T: 53 QT: 423 QTc: 388 Interpretive Statements SINUS BRADYCARDIA MINIMAL VOLTAGE CRITERIA FOR LVH, CONSIDER NORMAL VARIANT [MEETS CRITERIA IN ONE OF: R(aVL), S(V1), R(V5), R(V5/V6)+S(V1)] INFERIOR MYOCARDIAL INFARCTION , PROBABLY OLD [40+ ms Q WAVE AND/OR ST/T ABNORMALITY IN II/aVF] Compared to ECG 06/30/2024 14:12:50 Myocardial infarct finding now present Intraventricular conduction delay no longer present Electronically Signed On 07-01-2024 16:25:06 CDT by JUDY JONES [email or web address]
[2024-06-30] MEDS: cloNIDine 0.1 mg Tablet PO (18:10)
[2024-06-30 18:28] LABS: Troponin 5 6HR 216.9 ng/L (0-15); Troponin 5 6HR Delta 77.9 ng/L (0-12)
[2024-06-30] MEDS: metoprolol succinate ER (24 HR) 25 mg Tablet PO (20:25)
[2024-06-30] MEDS: trazodone 50 mg Tablet PO (20:25)
[2024-06-30] MEDS: hydroCHLOROthiazide 25 mg Tablet PO (20:26)
[2024-06-30] MEDS: losartan 50 mg Tablet 100 MG PO (20:26)
[2024-07-01] VITALS (40 sets, daily range): BP systolic 79–143; BP diastolic 42–83; PULSE 46–61; RESP 4–24; TEMP 36.3–37.1; O2SAT 93–97
[2024-07-01] MEDS: aspirin 325 mg Tablet PO (00:50)
[2024-07-01 03:40] LABS: Basophils % 0.4 %; Eosinophils # 0.2 10^3/uL (0.0-0.8); Eosinophils % 3.3 %; Lymphocytes # 1.4 10^3/uL (0.8-4.8); Lymphocytes % 29.4 %; Mean Corpuscular HGB Conc 33.9 g/dL (30-55); Mean Corpuscular Hemoglobin 30.7 pg (27-33); Mean Corpuscular Volume 90.5 fl (82-101); Mean Platelet Volume 10.1 fL (7.4-10.4); Monocytes # 0.5 10^3/uL (0.2-0.9); Monocytes % 10.9 %; Neutrophils # 2.55 10^3/uL (1.8-7.7); Neutrophils % 55.6 %; Nucleated Red Blood Cells % 0 %; Platelet Count 174 10^3/cmm (157-399); Red Cell Distribution Width 12.9 % (12.1-15.1); White Blood Count 4.59 10^3/uL (3.29-11.43)
[2024-07-01 04:01] LABS: Anion Gap 15.9 (5-19); Blood Urea Nitrogen 21 mg/dL (8-23); Calcium 9.2 mg/dL (8.5-10.5); Carbon Dioxide 22 mmol/L (22-29); Chloride 103 mmol/L (98-107); Creatinine Clr Calc Pharmacy 70.9059; Glucose 87 mg/dL (65-115); Osmolality Calculated 286 mOsm/kg (285-295); Potassium 3.9 mmol/L (3.5-5.1); Sodium 137 mmol/L (136-145)
[2024-07-01 04:06] LABS: Chol HDL Ratio 4.24 mg/dL (1.0-5.00); Cholesterol 157 mg/dL (0-200); HDL Cholesterol 37 mg/dL (60-100); LDL Cholesterol Calculated 102 mg/dL (50-129); LDL HDL Ratio 2.76 RATIO (0.00-3.22); Triglycerides 90 mg/dL (0-150)
--- NOTE | 2024-07-01 08:55 | PM.PN ---
Subjective Subjective: Patient is feeling okay. Has not had any recurrence of chest pain or neck pain since the last night. Vital signs remaining stable. Blood pressure seems to be getting under control. No fever or chills. No cough. The troponin T is trending upwards. Medications: Medication Review Details: Current Medications Acetaminophen (Acetaminophen 325 Mg Tablet) 650 mg PO Q6H PRN PRN Reason: MILD PAIN Al Hydrox/Mg Hydrox/Simethicone (Jlwp-Ogw-Qbqgmvpjj-Man 30 Ml Udc) 30 ml PO Q15M PRN PRN Reason: INDIGESTION Aspirin (Aspirin 81 Mg Chew Tablet) 81 mg PO DAILY [facility] Last Admin: 07/01/24 09:35 Dose: 81 mg Atropine Sulfate (Atropine 1 Mg/Ml Sdv 1 Ml) 0.5 mg IVP PRN PRN PRN Reason: Symptomatic bradycardia Clonidine HCl (Clonidine 0.1 Mg Tablet) 0.1 mg PO BID [facility] Last Admin: 07/01/24 09:38 Dose: Not Given Enoxaparin Sodium (Enoxaparin 100 Mg/Ml Syringe) 100 mg 1 mg/kg (100 mg) SUBCUT Q12H [facility] Last Admin: 07/01/24 05:29 Dose: Not Given Fenofibrate (Fenofibrate 145 Mg Tablet) 145 mg PO DAILY [facility] Last Admin: 07/01/24 09:35 Dose: 145 mg Fentanyl (Fentanyl 50 Mcg/Ml Inj 2ml) 50 mcg IVP PRN PRN PRN Reason: Prior to sheath removal Hydralazine HCl (Hydralazine 20 Mg/Ml Inj 1 Ml) 10 mg IVP Q6H PRN PRN Reason: HYPERTENSION Hydrochlorothiazide (Hydrochlorothiazide 25 Mg Tablet) 25 mg PO DAILY [facility] Last Admin: 07/01/24 09:38 Dose: Not Given Sodium Chloride (Sodium Chloride 0.9%) 1,000 mls @ 50 mls/hr IV .Q20H ONE Stop: 07/02/24 04:59 Last Admin: 07/01/24 09:22 Dose: 50 mls/hr Losartan Potassium (Losartan 50 Mg Tablet) 100 mg PO DAILY [facility] Last Admin: 07/01/24 09:35 Dose: 100 mg Magnesium Hydroxide (Magnesium Hydroxide 30 Ml Udc) 30 ml PO DAILY PRN PRN Reason: CONSTIPATION Metoprolol Succinate (Metoprolol Succinate Er (24 Hr) 25 Mg Tablet) 25 mg PO DAILY [facility] Last Admin: 07/01/24 09:39 Dose: Not Given Naloxone HCl (Naloxone 0.4 Mg/Ml Sdv) 0.1 mg IVP Q2M PRN PRN Reason: RESPIRATORY RATE < 8/MIN Nitroglycerin (Nitroglycerin 0.4 Mg Sublingual Tablet) 0.4 mg SUBLINGUAL Q5M PRN PRN Reason: CHEST PAIN Ondansetron HCl (Ondansetron 2 Mg/Ml Sdv 2 Ml) 4 mg IVP Q6H PRN PRN Reason: NAUSEA AND VOMITING Temazepam (Temazepam 15 Mg Capsule) 15 mg PO BEDTIME PRN PRN Reason: INSOMNIA Trazodone HCl (Trazodone 50 Mg Tablet) 50 mg PO QPM [facility] Last Admin: 06/30/24 20:25 Dose: 50 mg Vitals/I&O/Wt Last Vital Signs Temp 98.7 F 07/01/24 07:45 Pulse 53 L 07/01/24 07:45 Resp 20 H 07/01/24 07:45 BP 120/67 07/01/24 07:45 Pulse Ox 97 07/01/24 07:45 O2 Del Method Room Air 07/01/24 04:00 06/30/24 07/01/24 07/01/24 22:59 06:59 14:59 Intake Total 200 / 200 0 / 200 Balance 200 / 200 0 / 200 Weight last 48 hrs Weight 231 lb 8 oz Weight 227 lb Weight 227 lb Physical Exam Narrative: GENERAL: The patient is alert and oriented times three. Not in any acute distress. HEENT: No significant pallor, icterus or lymphadenopathy.Oral cavity: There are no mucous membrane lesions. NECK: Trachea appears to be central. No masses noted. No JVD or thyromegaly appreciated. RESPIRATORY: Chest is symmetrical. No intercostals muscle retraction or any accessory muscle activation. There is no chest wall tenderness. Breath sounds are heard bilaterally. No rales or rhonchi heard. No evidence of any consolidation. BREASTS: Deferred. HEART: The heart sounds are normal. No S3 or S4. Short systolic murmur in the left sternal border. No pericardial rub ABDOMEN: No vessel pulsations or distention. No tenderness. No organomegaly appreciated. Bowel sounds are normally heard. : Deferred. RECTAL: Deferred. LYMPHATIC: No lymphadenopathy noted in the neck. EXTREMITIES: No edema or cyanosis. No clubbing. MUSCULOSKELETAL: No acute joint deformities or swelling SKIN: There are no significant rashes or ecchymosis NEUROPSYCHIATRIC: The patient is alert and oriented x3. Appears to be in a good mood. No tremors or rigidity noted. Data 07/01/24 03:07 07/01/24 03:07 Other Labs: Laboratory Last Values WBC 4.59 10^3/uL (3.29-11.43) 07/01/24 03:07 RBC 4.20 10^6/uL (3.85-5.65) 07/01/24 03:07 Hgb 12.90 g/dL (11.27-16.99) 07/01/24 03:07 Hct 38.0 % (37-53) 07/01/24 03:07 MCV 90.5 fl (82-101) 07/01/24 03:07 MCH 30.7 pg (27-33) 07/01/24 03:07 MCHC 33.9 g/dL (30-55) 07/01/24 03:07 RDW 12.9 % (12.1-15.1) 07/01/24 03:07 Plt Count 174 10^3/cmm (157-399) 07/01/24 03:07 MPV 10.1 fL (7.4-10.4) 07/01/24 03:07 Neut % (Auto) 55.6 % 07/01/24 03:07 Lymph % (Auto) 29.4 % 07/01/24 03:07 [place] % (Auto) 10.9 % 07/01/24 03:07 Eos % (Auto) 3.3 % 07/01/24 03:07 Baso % (Auto) 0.4 % 07/01/24 03:07 Neut # (Auto) 2.55 10^3/uL (1.8-7.7) 07/01/24 03:07 Lymph # (Auto) 1.4 10^3/uL (0.8-4.8) 07/01/24 03:07 [place] # (Auto) 0.5 10^3/uL (0.2-0.9) 07/01/24 03:07 Eos # (Auto) 0.2 10^3/uL (0.0-0.8) 07/01/24 03:07 Baso # (Auto) 0.0 10^3/uL (0.0-0.1) 07/01/24 03:07 Nucleated RBC % (auto) 0 % 07/01/24 03:07 Nucleated RBCs # 0.0 /100WBC 07/01/24 03:07 Sodium 137 mmol/L (136-145) 07/01/24 03:07 Potassium 3.9 mmol/L (3.5-5.1) 07/01/24 03:07 Chloride 103 mmol/L (98-107) 07/01/24 03:07 Carbon Dioxide 22 mmol/L (22-29) 07/01/24 03:07 Anion Gap 15.9 (5-19) 07/01/24 03:07 BUN 21 mg/dL (8-23) 07/01/24 03:07 Creatinine 1.1 mg/dL (0.7-1.2) 07/01/24 03:07 GFR Calculation Not Reportable 07/01/24 03:07 Glucose 87 mg/dL (65-115) 07/01/24 03:07 Calculated Osmolality 286 mOsm/kg (285-295) 07/01/24 03:07 Calcium 9.2 mg/dL (8.5-10.5) 07/01/24 03:07 Total Bilirubin 0.7 mg/dL (0.15-1.2) 06/30/24 11:47 AST 21 U/L (0-40) 06/30/24 11:47 ALT 16 U/L (0-41) 06/30/24 11:47 Alkaline Phosphatase 43 U/L (40-130) 06/30/24 11:47 Troponin T Baseline 139 ng/L (0-15) H* 06/30/24 11:47 Troponin T 120 Minute 162.9 ng/L (0-15) H 06/30/24 14:20 Delta Troponin T 23.9 ABS# (0-10) H* 06/30/24 14:20 Troponin T Hi Sens 6Hr 216.9 ng/L (0-15) H 06/30/24 17:58 Troponin T Hi Sens 6Hr Delta 77.9 ng/L (0-12) H* 06/30/24 17:58 Total Protein 7.3 g/dL (6.6-8.7) 06/30/24 11:47 Albumin 4.4 g/dL (3.5-5.2) 06/30/24 11:47 Globulin 2.9 g/dL (1.3-4.6) 06/30/24 11:47 Triglycerides 90 mg/dL (0-150) 07/01/24 03:07 Cholesterol 157 mg/dL (0-200) 07/01/24 03:07 LDL Cholesterol, Calc 102 mg/dL (50-129) 07/01/24 03:07 HDL Cholesterol 37 mg/dL (60-100) L 07/01/24 03:07 LDL/HDL Ratio 2.76 RATIO (0.00-3.22) 07/01/24 03:07 Cholesterol/HDL Ratio 4.24 mg/dL (1.0-5.00) 07/01/24 03:07 A&P Assessment and plan (1) Non-ST elevated myocardial infarction (non-STEMI): Patient's elevated troponin T, may suggest non-ST elevation myocardial infarction. Hemodynamically seems to be stable. Patient had a 2-hour delta of 23 and a 6-hour delta of 67. (2) Chest pain: Patient had the CT of the chest yesterday which ruled out any aortic dissection. His symptoms are suggestive of unstable angina. For further evaluation of his coronary status, he requires a cardiac catheterization. (3) Benign essential HTN: The blood pressure seems to be getting under control. May continue on the current medications. (4) Dyslipidemia: May be continued on the current medications. (5) KAITLIN (obstructive sleep apnea): May need to monitor the oxygen level closely Plan For further evaluation of the patient's coronary status, he requires a cardiac catheterization. The risks, benefits and alternatives were discussed with the patient and his in detail. Patient is wanting to go ahead with the cardiac catheterization. The risk of bleeding, hematoma, vascular injury, myocardial infarction, myocardial perforation, malignant cardiac arrhythmias ,CVA, renal failure and other concomitant complications were explained in detail. Patient understood this well and consented to proceed. Patient and the family also told that we do not have cardiac surgery available in this hospital at this time. If he requires surgical revascularization, he may need to be transferred to another facility. Patient and the family understood this well and is wanting to go ahead with the angiogram in our facility. Based on the results, further recommendations will be made. PDMP PDMP Reviewed: Not Reviewed Attestations Medical Necessity Statement*: Patient requires continued hospital stay for close monitoring and further management Coding Level of Care Code 65254 Diagnoses Non-ST elevated myocardial infarction (non-STEMI) I21.4 Chest pain, unspecified type R07.9 Chest pain type: unspecified Benign essential HTN I10 Dyslipidemia E78.5 KAITLIN (obstructive sleep apnea) G47.33
[2024-07-01] MEDS: sodium chloride 0.9% 1,000 ML 50 ML IV (09:22)
[2024-07-01] MEDS: diphenhydrAMINE 50 mg Capsule PO (09:22)
[2024-07-01] MEDS: clopidogrel 75 mg Tablet PO (09:35)
[2024-07-01] MEDS: aspirin 81 mg Chew Tablet PO (09:35)
[2024-07-01] MEDS: losartan 50 mg Tablet 100 MG PO (09:35)
[2024-07-01] MEDS: fenofibrate 145 mg Tablet PO (09:35)
--- NOTE | 2024-07-01 09:45 | XACV_ITS ---
Exam Room: [facility] Ht: 183 cm Wt: 103 kg BSA: 2.31 m2 Gender: Male : 1945 Any Known Allergies: Other Exam Priority: Routine Indication(s): - Non-ST elevation AK Procedure(s): Procedure Description: Diagnostic procedure Procedure Description: Left Heart Catheterization Procedure Description: Left ventriculography Procedure Description: Coronary Angiography Adrian WAGNER; Diagnostic Cath Status: Urgent Diagnostic Findings * The left main is a medium caliber vessel with no significant stenotic lesions. * The left-sided ascending artery is a medium caliber vessel which appears to taper off towards the LV apex. The proximal to mid segment of the artery was found to have severe diffuse disease with narrowing of around 60 to 80% with moderate to heavy calcification. The first diagonal branch is an equal caliber vessel which was found to have proximal stenosis around 80% involving the ostium.. The first septal sock lining examiner was noted to have a high-grade ostial stenosis. * There is a medium caliber intermedius vessel which was found to have an ostial stenosis around 80%. Mild diffuse intimal irregularities were noted in the rest of the vessels. * The left circumflex artery is a medium caliber vessel which has a segmental narrowing of around 60% in the proximally. The first obtuse marginal branch was found to have an ostial narrowing of around 60%. Mild diffuse intimal irregularities are noted in the rest of the vessels. * The right coronary artery is a medium to large caliber vessel which was found to have heavy irregular narrowing of around 80% in the proximal segment before the takeoff of the first RV branch. The distal right coronary artery was found to be somewhat ectatic. The PLV branch appears to bifurcate proximally. One of the bifurcation branches were found to have severe diffuse disease proximally. The PDA branch was found to have mild to moderate diffuse intimal irregularities with no significant stenotic lesions.. Conclusions 1. 78-year-old white male present with complaints of chest pain and uncontrolled blood pressure. He has clinical features of unstable angina with a non-ST relation myocardial infarction. For further evaluation of the coronary status, a cardiac catheterization was recommended. Patient underwent left heart catheterization with left and right coronary angiogram and LV angiogram today. The findings are as follows. 2. Left main has no significant stenosis. Left and descending artery was found to have severe diffuse disease in the proximal to the mid segment of 60 to 80% with a moderate to heavy calcification. First diagonal branch was found to have a high-grade lesion proximally. Intermedius artery was also found to have high-grade stenosis. The circumflex artery was found to have proximal narrowing of around 60% the first obtuse marginal branch had an ostial narrowing from 60%. Right coronary artery was only heavy calcification with severe diffuse disease before the takeoff of the first RV branch. The PLV , bifurcated do not have a high-grade lesion proximally. Rest of the vessels were found to have mild to moderate diffuse disease. LV ejection fraction of 60%. LVEDP of 18 mmHg mmHg.. 3. I reviewed and discussed the cardiac catheterization data with Dr. Maharaj. Considering the three-vessel disease and the nature of the lesions, it was thought to be appropriate to consider surgical revascularization. This was discussed with the patient and his which they understood well and is agreeable.. Diagnostic RX Recommendation: CABG Left Ventriculography Findings: * The LV gram was done in the KELLY projection. LV cavity appears to be normal size. LV ejection fraction was around 65%. No significant wall motion abnormalities. No filling defects are noted. No significant mitral valve prolapse or mitral regurgitation.. Pressures Phase:Rest AO : 5 / -1 ( 0 ) @ 11:27:00 AM 105 / 63 ( 79 ) @ 11:27:00 AM 96 / 59 ( 79 ) @ 11:42:00 AM 118 / 61 ( 85 ) @ 11:46:00 AM 119 / 62 ( 85 ) @ 11:47:00 AM LV : 118 / 1 / 18 @ 11:45:00 AM 124 / 5 / 20 @ 11:46:00 AM 122 / 0 / 17 @ 11:46:00 AM Valves Phase:DefaultPhase AV : 4.0 @ 10:58:27 AM AV Mean Gradient: 14.0 @ 10:58:27 AM Clinical Evaluation EBL: 5mL-10mL Procedural Details Procedure Consent Obtained. Current Diagnosis : NSTEMI. Pre-Procedure Time Out. Identified patient by full name and date of as verbalized by the patient/guarantor. Does the consent match the physician's order: Yes. Accurate & Complete Informed Consent: Yes. Inpatient/Outpatient History & Physical on Chart: Yes. If H&P is completed, is and addenduem needed: No; If yes, is the addendum complete: N/A. Visualize and Verify Site with Patient/Guarantor: N/A. Relevant Radiology Images available: N/A. The risks, benefits, and alternatives of sedation and/or procedure were discussed by physician. The patient agrees to continue. Procedure started. [facility] Clinical Fraility Score: 3: Managing Well. Freight Engineer Indications: Worsening Angina. Chest Pain Symptom Assessment: Typical Angina Symptoms. Cardiovascular Instability: No. Correct patient, site and procedure confirmed by cath team. Current diagnosis: NSTEMI. PERRLA. Strong, equal hand security system analyst bilaterally. Lungs clear x 5 lobes. IV Site on Arrival: 20 gauge in the left anticubital. IV Fluids: 0.9% NaCl at KVO. 0 mL infused prior to filling station laborer. Pre Procedural Pulses: bilateral dorsalis pedis was 2+. Pre Procedural Pulses: bilateral posterior tibial was 2+. Pre Procedural Pulses: bilateral radial was 3+. Oxygen started at 3liters/min via nasal canula. right groin was prepped with chloroprep then draped in the usual sterile fashion. right radial was prepped with chloroprep then draped in the usual sterile fashion. Physician notified. Baseline sample Acquired. HR: 54 BPM. Physician arrived. Physician scrubbed in. Immediate Pre-Procedure Time Out. Correct Patient: Yes; Correct Procedure: Yes; Correct Site: Yes; Correct Patient Position: Yes; Correct Supplies: Yes; Dried Flammable Prep: Yes; Blood Products Available: N/A;. Lidocaine 1% infiltrated to the right radial. Arterial access obtained. A 5 bangladeshi Dmitriy catheter in over wire. Multiple views taken of left coronary artery. Catheter redirected to the RCA. Catheter removed over the exchange wire. A 5 bangladeshi JR4 catheter in over wire. Catheter removed over the exchange wire. A 5 bangladeshi 3DRC catheter in over wire. Multiple views taken of right coronary artery. Catheter removed over the exchange wire. A 5 bangladeshi Angled Pig catheter in over wire. EDP Sample taken: LV 118/1,18; HR: 54 BPM; SpO2: 97%. LV gram performed in KELLY @ 10 mL/second for a total of 30 mL. EDP Sample taken: LV 124/5,20; HR: 53 BPM; SpO2: 97%. Pullback taken: LV 122/0,17; AO 118/61(85); Mean: 14mmHg, Peak to Peak: 4mmHg, SEP: 5sec/min; HR: 54 BPM; SpO2: 97%. Catheter removed over the exchange wire. Physician review of films. Physician scrubbed out. A TR Band was successful obtaining hemostatsis at the Right Radial artery insertion site. TR band placed. Hemostasis obtained. Post Procedure: Pulses reassessed and unchanged. PERRLA. Strong, equal hand security system analyst bilaterally. No VTE prophylaxis required. Medication's Wasted: Lidocaine 1% = 18 ml , Verapamil = 5 mg , Nitro = 49.8 mg , Heparin = 1000 units, Fentanyl = 50 mcg. Total IV fluids: 300 mL. Fluoro: 11:08. Contrast type used: Visipaque 320 mgI/mL, 200 mL bottle. [id number]. Post-op diagnosis: Triple Vessel Disease. Complications: None. Estimated blood loss: 5mL-10mL. Responsiveness - Normal response to verbal stimuli; alert and oriented, PERRLA. Airway - Unaffected, no intervention required; spontaneous ventilation. Circulation: W/N/L, pulses unchanged. Nausea/Vomiting: No. Procedure completed. Patient transferred by bed to 1st floor. Vital chart was stopped. Access Site Site: Right Radial artery Sheath Size: 6 Fr Hemostasis Method: TR Band Hemostasis Success: Successful Procedure Medications Start: 10:11 AM Stop: 10:11 AM Medication: Benadryl Amount: 25 mg Route: I.V. Start: 10:17 AM Stop: 10:17 AM Medication: Versed Amount: 1 mg Route: I.V. Start: 10:18 AM Stop: 10:18 AM Medication: Fentanyl Amount: 50 mcg Route: I.V. Start: 10:24 AM Stop: 10:24 AM Medication: 0.9% Saline Amount: 250 ml Route: I.V. bolus Start: 10:25 AM Stop: 10:25 AM Medication: Nitrogylcerin Amount: 200 mcg Route: I.A. Start: 10:37 AM Stop: 10:37 AM Medication: Versed Amount: 1 mg Route: I.V. Start: 10:38 AM Stop: 10:38 AM Medication: Heparin Amount: 5000 units I, the attending physician, have reviewed and verified all procedure medications. Yes, all medications given per verbal order History/Risk Factors Hypertension: Yes Dyslipidemia: Yes Peripheral Arterial Disease (PAD): No Myocardial Infarction (AK): No Obesity: Yes Renal Disease: No Tobacco Use: Never Prior Interventions PCI: No CABG: No Valve Surgery: No Report Signatures Finalized by Dr Thanh Campblel MD [facility] on 07/01/2024 05:41 PM
--- NOTE | 2024-07-01 09:56 | PC.NURSE ---
to cardiac micro lab analyst via bed at this tie.heart rate and bp low all night.dr mcmahan held clonidine,hctz,and metoprolol this a.m.
--- NOTE | 2024-07-01 10:15 | W.PM.OPSUD ---
Surgery/Procedure H&P Update DATE OF PROCEDURE: July 01, 2024 DATE H&P PERFORMED: 06/30/24 H&P UPDATE INFORMATION: I have reviewed H&P completed within last 30 days, I have examined patient prior to procedure and No changes to prior documentation PREOP DIAGNOSIS: ASHD PRIMARY INDICATION FOR PROCEDURE: NSTEMI/UAP PLANNED PROCEDURE: Operation Date: 07/01/24 10:00 Proposed Procedures p Cardiac Catheterization(Left) - Thanh Campbell MD PATIENT REASSESSED PRIOR TO SEDATION, WITH NO CHANGE NOTED: Yes PHYSICAL EXAM: alert, oriented x 3, clear to auscultation bilaterally and regular rate & rhythm AIRWAY EVAL/ANESTHESIA PLAN: normal airway, see other exam findings, Monitored Anesthesia, Local Anesthesia, Risks, benefits & alternatives of sedation and/or procedure discussed and Patient agrees to continue as planned
--- NOTE | 2024-07-01 11:04 | PM.OP ---
Operative Report Date of procedure: July 01, 2024 Surgeon: Thanh Campbell MD Procedure: This patient underwent left heart catheterization with left and right coronary angiogram and LV angiogram today. He was found to have severe three-vessel coronary disease. The LV ejection fraction was within normal limits. Patient tolerated the procedure very well and there were no complications. Angiogram was reviewed with the Dr. Maharaj. It was thought to be appropriate to consider surgical revascularization for this patient. This was discussed with the patient and his and they are agreeable. So we will make arrangements to transfer him to a facility where this procedure can be done
--- NOTE | 2024-07-01 11:40 | PC.NURSE ---
received from cardiac lab aid via bed at 1100.report received.pt is alert and awake and oriented x 4.sb on monitor.denies pain at present.right radial tr band on and inflated.right hand is warm to touch and with brisk capillary refill.no hematoma noted.palpable radial pulse noted distal to tr band.pt instructed in activity restrictions s/p radial artery procedure...and instructed to notify staff for any bleeding,pain,numbness,sob,or for any concerns at all.pt verb understanding of instructions
--- NOTE | 2024-07-01 16:26 | PC.NURSE ---
tr band slowly deflated and eventually removed at 1600.right hand remains warm to touch and with brisk capillary refill.palpable radial pulse noted.no hematoma noted.site dressed with 2x2 gauze and secured with biocclusive drsg.pt instructed in activity restrictions s/p tr band removal...and instructed to notify staff for any bleeding.pain,numbness,sob or for any concerns at all.pt verb understanding of instructions
--- NOTE | 2024-07-01 17:20 | PC.NURSE ---
dr mcmahan ordered to hold the 1800 dose of 100 mg lovenox.resume at 0600 07/02/24.
--- NOTE | 2024-07-01 18:12 | P.PN_ITS ---
Subjective 2 Subjective: No acute events overnight. Patient seen at the bedside and has no new symptoms today. Throat pressure and left arm pain is improved. . Medications: Medication Review Details: Current Medications Acetaminophen (Acetaminophen 325 Mg Tablet) 650 mg PO Q6H PRN PRN Reason: MILD PAIN Al Hydrox/Mg Hydrox/Simethicone (Dibp-Ute-Lmvzhaohs-Man 30 Ml Udc) 30 ml PO Q15M PRN PRN Reason: INDIGESTION Aspirin (Aspirin 81 Mg Chew Tablet) 81 mg PO DAILY [facility] Last Admin: 07/01/24 09:35 Dose: 81 mg Atropine Sulfate (Atropine 1 Mg/Ml Sdv 1 Ml) 0.5 mg IVP PRN PRN PRN Reason: Symptomatic bradycardia Clonidine HCl (Clonidine 0.1 Mg Tablet) 0.1 mg PO BID [facility] Last Admin: 07/01/24 09:38 Dose: Not Given Enoxaparin Sodium (Enoxaparin 100 Mg/Ml Syringe) 100 mg 1 mg/kg (100 mg) SUBCUT Q12H [facility] Last Admin: 07/01/24 05:29 Dose: Not Given Fenofibrate (Fenofibrate 145 Mg Tablet) 145 mg PO DAILY [facility] Last Admin: 07/01/24 09:35 Dose: 145 mg Fentanyl (Fentanyl 50 Mcg/Ml Inj 2ml) 50 mcg IVP PRN PRN PRN Reason: Prior to sheath removal Hydralazine HCl (Hydralazine 20 Mg/Ml Inj 1 Ml) 10 mg IVP Q6H PRN PRN Reason: HYPERTENSION Hydrochlorothiazide (Hydrochlorothiazide 25 Mg Tablet) 25 mg PO DAILY [facility] Last Admin: 07/01/24 09:38 Dose: Not Given Sodium Chloride (Sodium Chloride 0.9%) 1,000 mls @ 50 mls/hr IV .Q20H ONE Stop: 07/02/24 04:59 Last Admin: 07/01/24 09:22 Dose: 50 mls/hr Losartan Potassium (Losartan 50 Mg Tablet) 100 mg PO DAILY [facility] Last Admin: 07/01/24 09:35 Dose: 100 mg Magnesium Hydroxide (Magnesium Hydroxide 30 Ml Udc) 30 ml PO DAILY PRN PRN Reason: CONSTIPATION Metoprolol Succinate (Metoprolol Succinate Er (24 Hr) 25 Mg Tablet) 25 mg PO DAILY [facility] Last Admin: 07/01/24 09:39 Dose: Not Given Naloxone HCl (Naloxone 0.4 Mg/Ml Sdv) 0.1 mg IVP Q2M PRN PRN Reason: RESPIRATORY RATE < 8/MIN Nitroglycerin (Nitroglycerin 0.4 Mg Sublingual Tablet) 0.4 mg SUBLINGUAL Q5M PRN PRN Reason: CHEST PAIN Ondansetron HCl (Ondansetron 2 Mg/Ml Sdv 2 Ml) 4 mg IVP Q6H PRN PRN Reason: NAUSEA AND VOMITING Temazepam (Temazepam 15 Mg Capsule) 15 mg PO BEDTIME PRN PRN Reason: INSOMNIA Trazodone HCl (Trazodone 50 Mg Tablet) 50 mg PO QPM [facility] Last Admin: 06/30/24 20:25 Dose: 50 mg Vitals/I&O/Wt Last Vital Signs Temp 97.6 F 07/01/24 11:42 Pulse 50 L 07/01/24 15:29 Resp 18 07/01/24 15:29 BP 105/53 07/01/24 15:29 Pulse Ox 97 07/01/24 15:29 O2 Del Method Room Air 07/01/24 11:42 07/01/24 07/01/24 07/01/24 06:59 14:59 22:59 Intake Total 0 / 200 360 / 360 360 / 720 Balance 0 / 200 360 / 360 360 / 720 Weight last 48 hrs Weight 105.007 kg Weight 102.965 kg Weight 102.965 kg Physical Exam 2 Narrative: General: Awake, alert, no acute distress. Skin: Warm, dry. Head: Normocephalic, atraumatic. Neck: Supple, trachea midline. Eye: Extraocular movements are intact. Ears, nose, mouth and throat: mucosa moist. Cardiovascular: S1, S2, regular rate and rhythm Respiratory: Lungs are clear to auscultation, no wheezes or crackles Gastrointestinal: Soft, Nontender, Non distended, bowel sounds positive Neurological: Alert and oriented, No focal neurological deficit observed. Data 07/01/24 03:07 07/01/24 03:07 A&P Assessment and plan (1) Non-ST elevated myocardial infarction (non-STEMI): (2) Accelerated hypertension: (3) Chest pain: Plan #Throat Pressure and pain in his left arm # Elevated troponin # Suspected NSTEMI - Patient presented with throat pressure and pain in his left arm in the setting of severe hypertension -CTA chest negative for PE, aortic dissection -Patient was evaluated by cardiology and had cardiac catheterization which showed multivessel disease -Plan is for transfer to another facility to evaluate for CABG - Telemetry monitoring # Severe/Accelerated hypertension - Patient's blood pressure is improved today -Continue antihypertensives PDMP PDMP Reviewed: Not Reviewed Attestations 2 Medical Necessity Statement*: Patient to continue care in the hospital while awaiting transfer to another facility for CABG Coding Level of Care Code Acute Code for [facility] Fwd Diagnoses Non-ST elevated myocardial infarction (non-STEMI) I21.4 Accelerated hypertension I10 Chest pain, unspecified type R07.9 Chest pain type: unspecified
[2024-07-01] MEDS: trazodone 50 mg Tablet PO (20:44)
[2024-07-02] VITALS (7 sets, daily range): BP systolic 122–147; BP diastolic 58–68; PULSE 51–58; RESP 14–18; TEMP 36.7–36.9; O2SAT 95–97
[2024-07-02 03:36] LABS: Albumin Level 3.5 g/dL (3.5-5.2); Anion Gap 13.1 (5-19); Blood Urea Nitrogen 21 mg/dL (8-23); Calcium 9.5 mg/dL (8.5-10.5); Carbon Dioxide 23 mmol/L (22-29); Chloride 105 mmol/L (98-107); Creatinine Clr Calc Pharmacy 65.6021; Glucose 93 mg/dL (65-115); Phosphorus 3.4 mg/dL (2.5-4.5); Potassium 4.1 mmol/L (3.5-5.1); Sodium 137 mmol/L (136-145)
[2024-07-02] MEDS: enoxaparin 100 mg/mL Syringe SUBCUT (05:44)
[2024-07-02] MEDS: losartan 50 mg Tablet 100 MG PO (08:38)
[2024-07-02] MEDS: fenofibrate 145 mg Tablet PO (08:38)
[2024-07-02] MEDS: aspirin 81 mg Chew Tablet PO (08:39)
--- NOTE | 2024-07-02 08:40 | PM.PN ---
Subjective Subjective: Patient had the cardiac catheterization yesterday. He was found to have severe three-vessel coronary artery disease. For further management of his conditions, he would require a surgical revascularization. Patient and the family is agreeable. I contacted Dr. Zavala, who is covering for Dr. Holley at the [facility] in [place]. Dr. Zavala accepted his transfer for further management Medications: Medication Review Details: Current Medications Acetaminophen (Acetaminophen 325 Mg Tablet) 650 mg PO Q6H PRN PRN Reason: MILD PAIN Al Hydrox/Mg Hydrox/Simethicone (Kegz-Sxc-Xqzjobpie-Man 30 Ml Udc) 30 ml PO Q15M PRN PRN Reason: INDIGESTION Aspirin (Aspirin 81 Mg Chew Tablet) 81 mg PO DAILY [facility] Last Admin: 07/02/24 08:39 Dose: 81 mg Atropine Sulfate (Atropine 1 Mg/Ml Sdv 1 Ml) 0.5 mg IVP PRN PRN PRN Reason: Symptomatic bradycardia Clonidine HCl (Clonidine 0.1 Mg Tablet) 0.1 mg PO BID [facility] On Hold: 07/01/24 09:00 Last Admin: 07/01/24 09:38 Dose: Not Given Enoxaparin Sodium (Enoxaparin 100 Mg/Ml Syringe) 100 mg 1 mg/kg (100 mg) SUBCUT Q12H [facility] Last Admin: 07/02/24 05:44 Dose: 100 mg Fenofibrate (Fenofibrate 145 Mg Tablet) 145 mg PO DAILY [facility] Last Admin: 07/02/24 08:38 Dose: 145 mg Fentanyl (Fentanyl 50 Mcg/Ml Inj 2ml) 50 mcg IVP PRN PRN PRN Reason: Prior to sheath removal Hydralazine HCl (Hydralazine 20 Mg/Ml Inj 1 Ml) 10 mg IVP Q6H PRN PRN Reason: HYPERTENSION Hydrochlorothiazide (Hydrochlorothiazide 25 Mg Tablet) 25 mg PO DAILY [facility] On Hold: 07/01/24 09:00 Last Admin: 07/01/24 09:38 Dose: Not Given Losartan Potassium (Losartan 50 Mg Tablet) 100 mg PO DAILY [facility] Last Admin: 07/02/24 08:38 Dose: 100 mg Magnesium Hydroxide (Magnesium Hydroxide 30 Ml Udc) 30 ml PO DAILY PRN PRN Reason: CONSTIPATION Metoprolol Succinate (Metoprolol Succinate Er (24 Hr) 25 Mg Tablet) 25 mg PO DAILY [facility] On Hold: 07/01/24 09:00 Last Admin: 07/01/24 09:39 Dose: Not Given Naloxone HCl (Naloxone 0.4 Mg/Ml Sdv) 0.1 mg IVP Q2M PRN PRN Reason: RESPIRATORY RATE < 8/MIN Nitroglycerin (Nitroglycerin 0.4 Mg Sublingual Tablet) 0.4 mg SUBLINGUAL Q5M PRN PRN Reason: CHEST PAIN Ondansetron HCl (Ondansetron 2 Mg/Ml Sdv 2 Ml) 4 mg IVP Q6H PRN PRN Reason: NAUSEA AND VOMITING Temazepam (Temazepam 15 Mg Capsule) 15 mg PO BEDTIME PRN PRN Reason: INSOMNIA Trazodone HCl (Trazodone 50 Mg Tablet) 50 mg PO 2100 [facility] Last Admin: 07/01/24 20:44 Dose: 50 mg Vitals/I&O/Wt Last Vital Signs Temp 98.0 F 07/02/24 07:13 Pulse 55 L 07/02/24 07:13 Resp 14 07/02/24 07:13 BP 129/68 07/02/24 08:38 Pulse Ox 96 07/02/24 07:13 O2 Del Method Room Air 07/02/24 07:13 07/01/24 07/02/24 07/02/24 22:59 06:59 14:59 Intake Total 1659 450 / 2470 Balance 1659 450 / 2470 Weight last 48 hrs Weight 239 lb 1.6 oz Weight 231 lb 8 oz Weight 227 lb Weight 227 lb Physical Exam Narrative: GENERAL: The patient is alert and oriented times three. Not in any acute distress. HEENT: No significant pallor, icterus or lymphadenopathy.Oral cavity: There are no mucous membrane lesions. NECK: Trachea appears to be central. No masses noted. No JVD or thyromegaly appreciated. RESPIRATORY: Chest is symmetrical. No intercostals muscle retraction or any accessory muscle activation. There is no chest wall tenderness. Breath sounds are heard bilaterally. No rales or rhonchi heard. No evidence of any consolidation. BREASTS: Deferred. HEART: The heart sounds are normal. No S3 or S4. Short systolic murmur in the left sternal border. No pericardial rub ABDOMEN: No vessel pulsations or distention. No tenderness. No organomegaly appreciated. Bowel sounds are normally heard. : Deferred. RECTAL: Deferred. LYMPHATIC: No lymphadenopathy noted in the neck. EXTREMITIES: No edema or cyanosis. No clubbing. MUSCULOSKELETAL: No acute joint deformities or swelling SKIN: There are no significant rashes or ecchymosis NEUROPSYCHIATRIC: The patient is alert and oriented x3. Appears to be in a good mood. No tremors or rigidity noted. Data 07/01/24 03:07 07/02/24 02:52 Other Labs: Laboratory Last Values WBC 4.59 10^3/uL (3.29-11.43) 07/01/24 03:07 RBC 4.20 10^6/uL (3.85-5.65) 07/01/24 03:07 Hgb 12.90 g/dL (11.27-16.99) 07/01/24 03:07 Hct 38.0 % (37-53) 07/01/24 03:07 MCV 90.5 fl (82-101) 07/01/24 03:07 MCH 30.7 pg (27-33) 07/01/24 03:07 MCHC 33.9 g/dL (30-55) 07/01/24 03:07 RDW 12.9 % (12.1-15.1) 07/01/24 03:07 Plt Count 174 10^3/cmm (157-399) 07/01/24 03:07 MPV 10.1 fL (7.4-10.4) 07/01/24 03:07 Neut % (Auto) 55.6 % 07/01/24 03:07 Lymph % (Auto) 29.4 % 07/01/24 03:07 [place] % (Auto) 10.9 % 07/01/24 03:07 Eos % (Auto) 3.3 % 07/01/24 03:07 Baso % (Auto) 0.4 % 07/01/24 03:07 Neut # (Auto) 2.55 10^3/uL (1.8-7.7) 07/01/24 03:07 Lymph # (Auto) 1.4 10^3/uL (0.8-4.8) 07/01/24 03:07 [place] # (Auto) 0.5 10^3/uL (0.2-0.9) 07/01/24 03:07 Eos # (Auto) 0.2 10^3/uL (0.0-0.8) 07/01/24 03:07 Baso # (Auto) 0.0 10^3/uL (0.0-0.1) 07/01/24 03:07 Nucleated RBC % (auto) 0 % 07/01/24 03:07 Nucleated RBCs # 0.0 /100WBC 07/01/24 03:07 Sodium 137 mmol/L (136-145) 07/02/24 02:52 Potassium 4.1 mmol/L (3.5-5.1) 07/02/24 02:52 Chloride 105 mmol/L (98-107) 07/02/24 02:52 Carbon Dioxide 23 mmol/L (22-29) 07/02/24 02:52 Anion Gap 13.1 (5-19) 07/02/24 02:52 BUN 21 mg/dL (8-23) 07/02/24 02:52 Creatinine 1.2 mg/dL (0.7-1.2) 07/02/24 02:52 GFR Calculation Not Reportable 07/02/24 02:52 Glucose 93 mg/dL (65-115) 07/02/24 02:52 Calculated Osmolality 286 mOsm/kg (285-295) 07/01/24 03:07 Calcium 9.5 mg/dL (8.5-10.5) 07/02/24 02:52 Phosphorus 3.4 mg/dL (2.5-4.5) 07/02/24 02:52 Total Bilirubin 0.7 mg/dL (0.15-1.2) 06/30/24 11:47 AST 21 U/L (0-40) 06/30/24 11:47 ALT 16 U/L (0-41) 06/30/24 11:47 Alkaline Phosphatase 43 U/L (40-130) 06/30/24 11:47 Troponin T Baseline 139 ng/L (0-15) H* 06/30/24 11:47 Troponin T 120 Minute 162.9 ng/L (0-15) H 06/30/24 14:20 Delta Troponin T 23.9 ABS# (0-10) H* 06/30/24 14:20 Troponin T Hi Sens 6Hr 216.9 ng/L (0-15) H 06/30/24 17:58 Troponin T Hi Sens 6Hr Delta 77.9 ng/L (0-12) H* 06/30/24 17:58 Total Protein 7.3 g/dL (6.6-8.7) 06/30/24 11:47 Albumin 3.5 g/dL (3.5-5.2) 07/02/24 02:52 Globulin 2.9 g/dL (1.3-4.6) 06/30/24 11:47 Triglycerides 90 mg/dL (0-150) 07/01/24 03:07 Cholesterol 157 mg/dL (0-200) 07/01/24 03:07 LDL Cholesterol, Calc 102 mg/dL (50-129) 07/01/24 03:07 HDL Cholesterol 37 mg/dL (60-100) L 07/01/24 03:07 LDL/HDL Ratio 2.76 RATIO (0.00-3.22) 07/01/24 03:07 Cholesterol/HDL Ratio 4.24 mg/dL (1.0-5.00) 07/01/24 03:07 A&P Assessment and plan (1) Non-ST elevated myocardial infarction (non-STEMI): Patient's elevated troponin T, may suggest non-ST elevation myocardial infarction. Currently remaining stable. Will restart heparin today (2) Atherosclerotic heart disease of [place] coronary artery with unstable angina pectoris: Patient has severe three-vessel coronary disease. Currently remaining stable. Will continue on the current medications. (3) Benign essential HTN: Blood pressure is slightly elevated. Will continue to optimize the antihypertensive medications. (4) Dyslipidemia: May be continued on the current medications. (5) KAITLIN (obstructive sleep apnea): May need to monitor the oxygen level closely Plan Patient is awaiting transfer to the [facility] Will continue on the current management. Further management as per Dr. Zavala/Dr. Holley PDMP PDMP Reviewed: Not Reviewed Attestations Medical Necessity Statement*: Possible transfer to [facility] today Coding Level of Care Code 29727 Diagnoses Non-ST elevated myocardial infarction (non-STEMI) I21.4 Atherosclerosis of [place] coronary artery of [place] heart with unstable angina pectoris I25.110 [place] vs. transplanted heart: [place] heart Benign essential HTN I10 Dyslipidemia E78.5 KAITLIN (obstructive sleep apnea) G47.33
--- NOTE | 2024-07-02 12:53 | PM.TDS ---
Transfer Summary Providers Date of Admission: 07/02/24 11:09 Date of Discharge/Transfer: 07/02/24 Attending Provider at Admission: Trevor Alejo MD Attending Provider at Transfer: Stephani Cox MD Primary Care Provider: Jazmin Mcintosh MD Transfer Plans: Anticipated date of transfer: 07/02/24. Receiving Facility: [facility]. Diagnoses at Discharge Discharge Diagnosis (1) Non-ST elevated myocardial infarction (non-STEMI): Status: Acute (2) Chest pain: Status: Acute Qualifiers: Chest pain type: unspecified Qualified Code(s): R07.9 - Chest pain, unspecified (3) Benign essential HTN: Status: Chronic (4) Dyslipidemia: Status: Chronic Permanent problem details: didn't tolerate statins in past; on fenofibrate (5) KAITLIN (obstructive sleep apnea): Status: Chronic Permanent problem details: cannot tolerate CPAP so not using Reason for Visit Reason for Visit BP high, ache on left side and throat Hospital Course Hospital Course 78-year-old man with a history of hypertension, hyperlipidemia and restless leg syndrome who presented to ER on 06/30 for further evaluation of elevated blood pressure and chest pain ongoing for the past few days. In the ER, patient noted to have elevated troponin. He hwas diagnosed with NSTEMI. This patient underwent left heart catheterization with left and right coronary angiogram and LV angiogram on 07/01/24. He was found to have severe three-vessel coronary disease. The LV ejection fraction was within normal limits. Patient tolerated the procedure very well and there were no complications. Angiogram was reviewed with Dr. Maharaj/intervention cardiology. It was thought to be appropriate to consider surgical revascularization for this patient. This was discussed with the patient and his and they agreed to transfer him to a facility where this procedure can be done. Transfer to [facility] was initiated and patient is being transferred in stable condition Physical Exam Narrative: General: No acute distress, AO x3 HEENT: PERRLA, pupils bilaterally equal and reactive, pallors not present Chest: Normal vesicular breath sounds, no added sounds, equal good air entry bilaterally CVS: S1-S2 regular, no murmurs, no tachycardia, no gallops, no rubs Abdomen: Soft, nontender, no organomegaly, bowel sounds present Neuro: No focal deficits, no facial deformity, AO x3, power 5/5 in all limbs TS Data Studies Completed and Pending Completed Studies During Hospitalization Category Date Time Status CTA chest [CT angio chest 99941] Stat Cat Scan 06/30/24 17:01 Completed [employer] request for service Routine Exams 07/01/24 09:45 Completed US echo complete [CV. echo complete* [id number]] Stat Ultrasound 06/30/24 12:59 Completed Laboratory Last Values WBC 4.59 10^3/uL (3.29-11.43) 07/01/24 03:07 RBC 4.20 10^6/uL (3.85-5.65) 07/01/24 03:07 Hgb 12.90 g/dL (11.27-16.99) 07/01/24 03:07 Hct 38.0 % (37-53) 07/01/24 03:07 MCV 90.5 fl (82-101) 07/01/24 03:07 MCH 30.7 pg (27-33) 07/01/24 03:07 MCHC 33.9 g/dL (30-55) 07/01/24 03:07 RDW 12.9 % (12.1-15.1) 07/01/24 03:07 Plt Count 174 10^3/cmm (157-399) 07/01/24 03:07 MPV 10.1 fL (7.4-10.4) 07/01/24 03:07 Neut % (Auto) 55.6 % 07/01/24 03:07 Lymph % (Auto) 29.4 % 07/01/24 03:07 Rowan % (Auto) 10.9 % 07/01/24 03:07 Eos % (Auto) 3.3 % 07/01/24 03:07 Baso % (Auto) 0.4 % 07/01/24 03:07 Neut # (Auto) 2.55 10^3/uL (1.8-7.7) 07/01/24 03:07 Lymph # (Auto) 1.4 10^3/uL (0.8-4.8) 07/01/24 03:07 Rowan # (Auto) 0.5 10^3/uL (0.2-0.9) 07/01/24 03:07 Eos # (Auto) 0.2 10^3/uL (0.0-0.8) 07/01/24 03:07 Baso # (Auto) 0.0 10^3/uL (0.0-0.1) 07/01/24 03:07 Nucleated RBC % (auto) 0 % 07/01/24 03:07 Nucleated RBCs # 0.0 /100WBC 07/01/24 03:07 Sodium 137 mmol/L (136-145) 07/02/24 02:52 Potassium 4.1 mmol/L (3.5-5.1) 07/02/24 02:52 Chloride 105 mmol/L (98-107) 07/02/24 02:52 Carbon Dioxide 23 mmol/L (22-29) 07/02/24 02:52 Anion Gap 13.1 (5-19) 07/02/24 02:52 BUN 21 mg/dL (8-23) 07/02/24 02:52 Creatinine 1.2 mg/dL (0.7-1.2) 07/02/24 02:52 GFR Calculation Not Reportable 07/02/24 02:52 Glucose 93 mg/dL (65-115) 07/02/24 02:52 Calculated Osmolality 286 mOsm/kg (285-295) 07/01/24 03:07 Calcium 9.5 mg/dL (8.5-10.5) 07/02/24 02:52 Phosphorus 3.4 mg/dL (2.5-4.5) 07/02/24 02:52 Total Bilirubin 0.7 mg/dL (0.15-1.2) 06/30/24 11:47 AST 21 U/L (0-40) 06/30/24 11:47 ALT 16 U/L (0-41) 06/30/24 11:47 Alkaline Phosphatase 43 U/L (40-130) 06/30/24 11:47 Troponin T Baseline 139 ng/L (0-15) H* 06/30/24 11:47 Troponin T 120 Minute 162.9 ng/L (0-15) H 06/30/24 14:20 Delta Troponin T 23.9 ABS# (0-10) H* 06/30/24 14:20 Troponin T Hi Sens 6Hr 216.9 ng/L (0-15) H 06/30/24 17:58 Troponin T Hi Sens 6Hr Delta 77.9 ng/L (0-12) H* 06/30/24 17:58 Total Protein 7.3 g/dL (6.6-8.7) 06/30/24 11:47 Albumin 3.5 g/dL (3.5-5.2) 07/02/24 02:52 Globulin 2.9 g/dL (1.3-4.6) 06/30/24 11:47 Triglycerides 90 mg/dL (0-150) 07/01/24 03:07 Cholesterol 157 mg/dL (0-200) 07/01/24 03:07 LDL Cholesterol, Calc 102 mg/dL (50-129) 07/01/24 03:07 HDL Cholesterol 37 mg/dL (60-100) L 07/01/24 03:07 LDL/HDL Ratio 2.76 RATIO (0.00-3.22) 07/01/24 03:07 Cholesterol/HDL Ratio 4.24 mg/dL (1.0-5.00) 07/01/24 03:07 Radiology Impressions Chest CTA 06/30/24 17:01 IMPRESSION: No acute findings. No evidence for pulmonary embolism. Recent Clincial Data Last Vital Signs Temp 98.0 F 07/02/24 07:13 Pulse 58 L 07/02/24 11:57 Resp 15 07/02/24 11:57 BP 147/68 07/02/24 11:57 Pulse Ox 97 07/02/24 11:57 O2 Del Method Room Air 07/02/24 11:57 Vital Signs Temp Pulse Resp BP Pulse Ox O2 Del Method 07/02/24 11:57 58 L 15 147/68 97 Room Air 07/02/24 08:38 129/68 07/02/24 07:13 98.0 F 55 L 14 129/68 96 Room Air 07/02/24 04:44 51 L 07/02/24 04:00 98.5 F 54 L 18 122/58 95 Room Air Intake & Output/Weight 06/30/24 07/01/24 07/02/24 07/03/24 06:59 06:59 06:59 06:59 Intake Total 200 / 200 2470 / 2470 480 / 480 Balance 200 / 200 2470 / 2470 480 / 480 Weight 105.007 kg 108.454 kg Vitals Last Vital Signs Temp 98.0 F 07/02/24 07:13 Pulse 58 L 05/11/25 11:57 Resp 15 07/02/24 11:57 BP 147/68 07/02/24 11:57 Pulse Ox 97 07/02/24 11:57 O2 Del Method Room Air 07/02/24 11:57 TS Medications Medications Acetaminophen (Acetaminophen 325 Mg Tablet) 650 mg PO Q6H PRN PRN Reason: MILD PAIN Al Hydrox/Mg Hydrox/Simethicone (Vpxb-Hdo-Jjjuaaqyl-Man 30 Ml Udc) 30 ml PO Q15M PRN PRN Reason: INDIGESTION Aspirin (Aspirin 81 Mg Chew Tablet) 81 mg PO DAILY COUNTS INCLUDE 234 BEDS AT THE [facility] Last Admin: 07/02/24 08:39 Dose: 81 mg Atropine Sulfate (Atropine 1 Mg/Ml Sdv 1 Ml) 0.5 mg IVP PRN PRN PRN Reason: Symptomatic bradycardia Clonidine HCl (Clonidine 0.1 Mg Tablet) 0.1 mg PO BID COUNTS INCLUDE 234 BEDS AT THE [facility] On Hold: 07/01/24 09:00 Last Admin: 07/01/24 09:38 Dose: Not Given Enoxaparin Sodium (Enoxaparin 100 Mg/Ml Syringe) 100 mg 1 mg/kg (100 mg) SUBCUT Q12H COUNTS INCLUDE 234 BEDS AT THE [facility] Last Admin: 07/02/24 05:44 Dose: 100 mg Fenofibrate (Fenofibrate 145 Mg Tablet) 145 mg PO DAILY COUNTS INCLUDE 234 BEDS AT THE [facility] Last Admin: 07/02/24 08:38 Dose: 145 mg Fentanyl (Fentanyl 50 Mcg/Ml Inj 2ml) 50 mcg IVP PRN PRN PRN Reason: Prior to sheath removal Hydralazine HCl (Hydralazine 20 Mg/Ml Inj 1 Ml) 10 mg IVP Q6H PRN PRN Reason: HYPERTENSION Hydrochlorothiazide (Hydrochlorothiazide 25 Mg Tablet) 25 mg PO DAILY COUNTS INCLUDE 234 BEDS AT THE [facility] On Hold: 07/01/24 09:00 Last Admin: 07/01/24 09:38 Dose: Not Given Losartan Potassium (Losartan 50 Mg Tablet) 100 mg PO DAILY COUNTS INCLUDE 234 BEDS AT THE [facility] Last Admin: 07/02/24 08:38 Dose: 100 mg Magnesium Hydroxide (Magnesium Hydroxide 30 Ml Udc) 30 ml PO DAILY PRN PRN Reason: CONSTIPATION Metoprolol Succinate (Metoprolol Succinate Er (24 Hr) 25 Mg Tablet) 25 mg PO DAILY COUNTS INCLUDE 234 BEDS AT THE [facility] On Hold: 07/01/24 09:00 Last Admin: 07/01/24 09:39 Dose: Not Given Naloxone HCl (Naloxone 0.4 Mg/Ml Sdv) 0.1 mg IVP Q2M PRN PRN Reason: RESPIRATORY RATE < 8/MIN Nitroglycerin (Nitroglycerin 0.4 Mg Sublingual Tablet) 0.4 mg SUBLINGUAL Q5M PRN PRN Reason: CHEST PAIN Ondansetron HCl (Ondansetron 2 Mg/Ml Sdv 2 Ml) 4 mg IVP Q6H PRN PRN Reason: NAUSEA AND VOMITING Temazepam (Temazepam 15 Mg Capsule) 15 mg PO BEDTIME PRN PRN Reason: INSOMNIA Trazodone HCl (Trazodone 50 Mg Tablet) 50 mg PO 2100 COUNTS INCLUDE 234 BEDS AT THE [facility] Last Admin: 07/01/24 20:44 Dose: 50 mg Discontinued Medications Aspirin (Aspirin 81 Mg Chew Tablet) 324 mg PO NOW ONE Stop: 06/30/24 13:00 Last Admin: 06/30/24 13:21 Dose: 324 mg Aspirin (Aspirin 325 Mg Tablet) 325 mg PO ONCE ONE Stop: 07/01/24 00:26 Last Admin: 07/01/24 00:50 Dose: 325 mg Clopidogrel Bisulfate (Clopidogrel 300 Mg Tablet) 300 mg PO ONCE ONE Stop: 06/30/24 13:00 Last Admin: 06/30/24 13:21 Dose: 300 mg Clopidogrel Bisulfate (Clopidogrel 75 Mg Tablet) 75 mg PO DAILY COUNTS INCLUDE 234 BEDS AT THE [facility] Last Admin: 07/01/24 09:35 Dose: 75 mg Diphenhydramine HCl (Diphenhydramine 50 Mg Capsule) 50 mg PO ONCE ONE Stop: 07/01/24 00:26 Last Admin: 07/01/24 00:41 Dose: Not Given Diphenhydramine HCl (Diphenhydramine 50 Mg Capsule) 50 mg PO ONCE ONE Stop: 07/01/24 09:01 Last Admin: 07/01/24 09:22 Dose: 50 mg Diphenhydramine HCl (Diphenhydramine 50 Mg/Ml Sdv 1ml) Confirm Administered Dose 50 mg .ROUTE .STK-MED ONE Stop: 07/01/24 10:03 Enoxaparin Sodium (Enoxaparin 100 Mg/Ml Syringe) 100 mg SUBCUT ONCE ONE Stop: 06/30/24 13:00 Last Admin: 06/30/24 13:23 Dose: 100 mg Enoxaparin Sodium (Enoxaparin 100 Mg/Ml Syringe) 100 mg 1 mg/kg (100 mg) SUBCUT Q12H COUNTS INCLUDE 234 BEDS AT THE [facility] Last Admin: 06/30/24 20:43 Dose: Not Given Fentanyl (Fentanyl 50 Mcg/Ml Inj 2ml) Confirm Administered Dose 100 mcg .ROUTE .STK-MED ONE Stop: 07/01/24 09:33 Heparin Sodium (Porcine) (Heparin 5,000 Unit/Ml Inj 1 Ml) Confirm Administered Dose 10,000 unit .ROUTE .STK-MED ONE Stop: 07/01/24 09:33 Hydrochlorothiazide (Hydrochlorothiazide 25 Mg Tablet) 25 mg PO DAILY COUNTS INCLUDE 234 BEDS AT THE [facility] Sodium Chloride (Sodium Chloride 0.9%) 1,000 mls @ 50 mls/hr IV .Q20H ONE Stop: 07/01/24 20:24 Last Admin: 07/01/24 00:51 Dose: Not Given Sodium Chloride (Sodium Chloride 0.9%) 1,000 mls @ 50 mls/hr IV .Q20H ONE Stop: 07/02/24 04:59 Last Infusion: 07/01/24 20:03 Dose: Infused Lidocaine HCl (Xylocaine) Confirm Administered Dose 20 mls @ as directed .ROUTE .STK-MED ONE Stop: 07/01/24 09:33 Losartan Potassium (Losartan 50 Mg Tablet) 100 mg PO DAILY COUNTS INCLUDE 234 BEDS AT THE [facility] Metoprolol Succinate (Metoprolol Succinate Er (24 Hr) 25 Mg Tablet) 25 mg PO DAILY COUNTS INCLUDE 234 BEDS AT THE [facility] Midazolam HCl (Midazolam 1 Mg/Ml Inj 2 Ml) Confirm Administered Dose 2 mg .ROUTE .STK-MED ONE Stop: 07/01/24 09:33 Nitroglycerin (Nitroglycerin 5 Mg/Ml Sdv 10 Ml) Confirm Administered Dose 50 mg .ROUTE .STK-MED ONE Stop: 07/01/24 09:33 Non-Formulary Medication (Chondroitin Sulfate A Sodium) 1,200 mg PO DAILY COUNTS INCLUDE 234 BEDS AT THE [facility] Trazodone HCl (Trazodone 50 Mg Tablet) 50 mg PO QPM COUNTS INCLUDE 234 BEDS AT THE [facility] Last Admin: 06/30/24 20:43 Dose: Not Given Trazodone HCl (Trazodone 50 Mg Tablet) 50 mg PO QPM COUNTS INCLUDE 234 BEDS AT THE [facility] Last Admin: 06/30/24 20:25 Dose: 50 mg Verapamil HCl (Verapamil 2.5 Mg/Ml Inj 2ml) Confirm Administered Dose 5 mg .ROUTE .STK-MED ONE Stop: 07/01/24 09:44 Allergies amoxicillin Allergy (Unknown, Verified 03/17/24 08:03) ALGY-Rash Penicillins Allergy (Unknown, Verified 03/17/24 08:03) ALGY-Rash Cpyyyjc-PAA-QiA Reductase Inhibitor Adverse Reaction (Intermediate, Verified 03/17/24 08:03) myalgias Home Medications trazodone 50 mg tablet 50 mg PO .qpm #90 tabs 02/13/24 [Rx Confirmed 06/30/24] fenofibrate nanocrystallized 145 mg tablet See Rx Instructions .Route .COMPLEX #90 tabs 05/09/24 [Rx Confirmed 06/30/24] hydrochlorothiazide 25 mg tablet 25 mg PO DAILY #90 tabs 05/09/24 [Rx Confirmed 06/30/24] losartan 100 mg tablet See Rx Instructions .Route .COMPLEX #90 tabs 05/09/24 [Rx Confirmed 06/30/24] metoprolol succinate 25 mg tablet,extended release 24 hr See Rx Instructions .Route .COMPLEX #90 tabs 05/09/24 [Rx Confirmed 06/30/24] indomethacin 50 mg capsule 50 mg PO TID PRN gout #30 caps 06/13/24 [Rx Confirmed 06/30/24] chondroitin sulfate A sodium 400 mg capsule 1,200 mg PO DAILY 06/29/24 [History Confirmed 06/30/24] coenzyme Q10 100 mg capsule (CoQ-10) 200 mg PO DAILY 06/29/24 [History Confirmed 06/30/24] cyanocobalamin (vitamin B-12) 1,000 mcg tablet (Vitamin B-12) 1,000 mcg PO DAILY 06/29/24 [History Confirmed 06/30/24] glucosamine HCl 1,500 mg tablet 1,500 mg PO DAILY 06/29/24 [History Confirmed 06/30/24] multivitamin with minerals-folic acid 400 mcg-lycopene 370 mcg tablet (One-A-Day Men's 50 Plus) 1 tab PO DAILY 06/29/24 [History Confirmed 06/30/24] quercetin 500 mg capsule 1,000 mg PO DAILY 06/29/24 [History Confirmed 06/30/24] vitamin D3 125 mcg (5,000 unit)-vitamin K2 100 mcg capsule 1 cap PO DAILY 06/29/24 [History Confirmed 06/30/24] zinc acetate 50 mg (zinc) capsule 50 mg PO DAILY 06/29/24 [History Confirmed 06/30/24] clonidine HCl 0.1 mg tablet 0.1 mg PO BID #60 tabs 06/30/24 [Rx Confirmed 06/30/24] Discharge Plan Discharge Patient Disposition: Home Condition: Stable Prescriptions: No Action trazodone 50 mg tablet 50 mg PO .qpm Qty: 90 3RF fenofibrate nanocrystallized 145 mg tablet See Rx Instructions .ROUTE .COMPLEX Qty: 90 1RF Dose Instruction: Take 1 tablet by mouth once daily Rx Instructions: Take 1 tablet by mouth once daily losartan 100 mg tablet See Rx Instructions .ROUTE .COMPLEX Qty: 90 1RF Dose Instruction: Take 1 tablet by mouth once daily Rx Instructions: Take 1 tablet by mouth once daily hydrochlorothiazide 25 mg tablet 25 mg PO DAILY Qty: 90 1RF metoprolol succinate 25 mg tablet extended release 24 hr See Rx Instructions .ROUTE .COMPLEX Qty: 90 1RF Dose Instruction: Take 1 tablet by mouth once daily Rx Instructions: Take 1 tablet by mouth once daily indomethacin 50 mg capsule 50 mg PO TID PRN (Reason: gout) Qty: 30 0RF Rx Instructions: administer with food or milk clonidine HCl 0.1 mg tablet 0.1 mg PO BID Qty: 60 0RF Rx Instructions: only take if top number BP is >160 or bottom number is >100, can take up to bid prn high readings zinc acetate 50 mg (zinc) Capsule 50 mg PO DAILY cyanocobalamin (vitamin B-12) [Vitamin B-12] 1,000 mcg Tablet 1,000 mcg PO DAILY Chondroitin Sulfate 400 mg Capsule 1,200 mg PO DAILY coenzyme Q10 [CoQ-10] 100 mg Capsule 200 mg PO DAILY glucosamine HCl 1,500 mg Tablet 1,500 mg PO DAILY Rx Instructions: administer with a meal quercetin 500 mg Capsule 1,000 mg PO DAILY One-A-Day Men's 50 Plus 400-370 mcg Tablet 1 tab PO DAILY vitamin D3-vitamin K2 125 mcg (5,000 unit)-100 mcg Capsule 1 cap PO DAILY Discharge Orders: Transfer Out of Facility (Order); Ordered 07/02/24 Ordered By: Stephani Cox Referrals: Jazmin Mcintosh MD [Primary Care Provider, Family Practice] Patient Instructions: Opioid Safety Transfer Attestations Time Spent in Transfer Care: greater than 30 min Quality Metrics Clinical Quality Measures [ Acute Myocardial Infaction { Clinical Trial Participant: No; Contraindication to aspirin: None; Aspirin prescribed; Contraindication to statin: None; Statin prescribed; Contraindication to PCI: None; PCI performed;}] Coding Level of Care Code Acute Code for g Fwd Diagnoses Non-ST elevated myocardial infarction (non-STEMI) I21.4 Chest pain, unspecified type R07.9 Chest pain type: unspecified Benign essential HTN I10 Dyslipidemia E78.5 KAITLIN (obstructive sleep apnea) G47.33
--- NOTE | 2024-07-02 13:18 | PC.NURSE ---
transport via [facility] to [facility] in [place], [place].report given to [facility] staff.discharged at this time.
== END 2024-07-02 13:30 | disposition home or self-care (01) | DRG 282 ==
LOC: ER 14:54 → CSU 20:33
PROVIDERS: Internal Medicine Cardiovascular Disease; Admitting Provider Student in an Organized Health Care Education/Training Program; Emergency Provider Emergency Medicine; PCP Family Medicine; Visit Provider Student in an Organized Health Care Education/Training Program
PROC: 4A023N7 Measurement of Cardiac Sampling and Pressure, Left Heart, Percutaneous Approach (ICD-10-PCS; principal; 2024-07-01 10:00)
DX: I21.4 Non-ST elevation (NSTEMI) myocardial infarction (principal); I10 Essential (primary) hypertension; E78.5 Hyperlipidemia, unspecified; G47.33 Obstructive sleep apnea (adult) (pediatric); F51.04 Psychophysiologic insomnia
CPT/HCPCS: 36415; 71275; 80048; 80053; 80061; 80069; 84484; 85025; 93005; 93306; 93458; 96372; 96374; 96375; 96376; 99152; 99153; 99285; C1769; C1887; C1894; G0378; J1200; J1644; J1650; J2250; J3010; J3490; J7030; J9999; Q0163; Q9967

== ENCOUNTER 2024-08-09 08:35 | Outpatient (RCR) | payer MEDICARE, SELFPAY | END 2024-08-21 23:59 | disposition home or self-care (01) | LOC: CR 08:35 | PROVIDERS: PCP Family Medicine; Visit Provider Nurse Practitioner Family | DX: Z95.1 Presence of aortocoronary bypass graft (principal) | CPT/HCPCS: 93798 ==

== ENCOUNTER → 2024-08-17 14:06 | Outpatient (BNVA) | payer MEDICARE, SELFPAY | PROVIDERS: PCP Family Medicine; Visit Provider Nurse Practitioner Family | DX: I10 Essential (primary) hypertension (principal); I25.110 Atherosclerotic heart disease of native coronary artery with unstable angina pectoris; Z95.1 Presence of aortocoronary bypass graft; Z86.718 Personal history of other venous thrombosis and embolism; Z79.01 Long term (current) use of anticoagulants | CPT/HCPCS: 36415; 80053; 85025; 99214 ==

== ENCOUNTER 2024-08-22 10:00 | Outpatient (RCR) | payer MEDICARE, SELFPAY | END 2024-09-21 23:59 | disposition home or self-care (01) | LOC: CR 10:00 | PROVIDERS: PCP Family Medicine; Visit Provider Nurse Practitioner Family | DX: Z95.1 Presence of aortocoronary bypass graft (principal) | CPT/HCPCS: 93798 ==

== ENCOUNTER 2024-09-22 12:31 | Outpatient (RCR) | payer MEDICARE, SELFPAY | END 2024-10-22 23:59 | disposition home or self-care (01) | LOC: CR 12:31 | PROVIDERS: PCP Family Medicine; Visit Provider Nurse Practitioner Family | DX: Z95.1 Presence of aortocoronary bypass graft (principal) | CPT/HCPCS: 93798 ==

== ENCOUNTER 2024-10-24 10:48 | Outpatient (RCR) | payer MEDICARE, SELFPAY | END 2024-11-21 23:59 | disposition home or self-care (01) | LOC: CR 10:48 | PROVIDERS: PCP Family Medicine; Visit Provider Nurse Practitioner Family | DX: Z95.1 Presence of aortocoronary bypass graft (principal) | CPT/HCPCS: 93798 ==

== ENCOUNTER 2024-11-22 12:08 | Outpatient (RCR) | payer MEDICARE, SELFPAY | END 2024-12-22 23:59 | disposition home or self-care (01) | LOC: CR 12:08 | PROVIDERS: PCP Family Medicine; Visit Provider Nurse Practitioner Family | DX: Z95.5 Presence of coronary angioplasty implant and graft (principal) | CPT/HCPCS: 93798 ==

== ENCOUNTER → 2024-11-22 12:29 | Outpatient (BNVA) | payer MEDICARE, SELFPAY | PROVIDERS: PCP Family Medicine; Visit Provider Internal Medicine | DX: I25.10 Atherosclerotic heart disease of native coronary artery without angina pectoris (principal); I48.91 Unspecified atrial fibrillation; E78.5 Hyperlipidemia, unspecified; I10 Essential (primary) hypertension | CPT/HCPCS: 99214 ==

== ENCOUNTER 2024-12-23 13:40 | Outpatient (RCR) | payer SELFPAY | END 2025-01-21 23:59 | disposition home or self-care (01) | LOC: CR 13:40 | PROVIDERS: PCP Family Medicine; Visit Provider Nurse Practitioner Family | DX: Z95.1 Presence of aortocoronary bypass graft (principal) | CPT/HCPCS: 93798 ==

== ENCOUNTER 2025-01-01 13:47 | Outpatient (CLI) | payer MEDICARE, SELFPAY ==
--- NOTE | 2025-01-01 14:15 | USCV_ITS ---
Roberto Carlos Maya Age: 79 Gender: M : 1945 Exam Date: 01/01/2025 14:05 Ordering Phys: Kristin Degroot NP Technologist: Exam Location: [facility] [place] Indication: dvt HISTORY: dvt PROCEDURES: Venous duplex imaging was performed in only the left upper extremity. Serial compression, augmentation maneuvers, and spectral Doppler flow evaluation were performed. FINDINGS: Normal 2-D, color Doppler and phasicity noted in the left upper extremity venous system extending from the left internal jugular vein through the main forearm. No thrombosis or occlusion noted. CONCLUSIONS No left upper extremity DVT. Dr. Dinorah Taylor DO (Electronically Signed) Final Date: 01 January 2025 14:27 S
== END 2025-01-01 13:48 | disposition home or self-care (01) ==
LOC: RAD 13:48
PROVIDERS: PCP Family Medicine; Visit Provider Nurse Practitioner Family
DX: Z09 Encounter for follow-up examination after completed treatment for conditions other than malignant neoplasm (principal); I82.622 Acute embolism and thrombosis of deep veins of left upper extremity
CPT/HCPCS: 93971

== ENCOUNTER 2025-01-26 07:43 | Outpatient (RCR) | payer SELFPAY | END 2025-02-21 23:59 | disposition home or self-care (01) | LOC: CR 07:43 | PROVIDERS: PCP Family Medicine; Visit Provider Nurse Practitioner Family | DX: Z95.1 Presence of aortocoronary bypass graft (principal) ==